=== PATIENT | female | born 1975 | race Caucasian/White ===

== ENCOUNTER 2018-12-04 13:11 | Emergency (ER) | payer SELFPAY, OTHER | END 2018-12-04 16:46 | disposition home or self-care (01) | LOC: ER FS 13:11 ==

== ENCOUNTER 2019-08-22 18:48 | Emergency (ER) | payer SELFPAY ==
[~2019-08-22] VITALS: Ht 165.1 cm; Wt 65.9 kg
[~2019-08-22 18:48] MED LIST: CEPH500T PO; METO5TAB75 PO; PROM25TA14 PO
--- NOTE | 2019-08-22 19:08 | ED Abdominal Pain ---
General Stated Complaint: BODY ACHES,VOMITING,SORE THROAT,HEAD/EAR ACHE History of Present Illness Date Seen by Provider: Aug 22, 2019 Time Seen by Provider: 19:05 Initial Comments This patient is a 43-year-old female presents to the emergency department with a long history of chronic kidney disease reports that she's had abdominal pain nausea vomiting diarrhea for the past couple days. Patient states she has a long history of constipation issues and gastroparesis abdominal pain Issues. Takes medications for the same. Denies any history of diabetes. Patient states she has stage III kidney disease. Patient has a port in her chest and frequent IVs and movement and evaluations. Patient states for the past 3 days she leaves she's had a fever but has not checked it has had nausea and vomited a cramping abdominal pain. We'll do a medical evaluation treatment as needed. Timing/Duration: 3-4 Days Severity/Quality: Moderate Location: Generalized Abdomen Radiation: No Radiation Activities at Onset: None Associated Symptoms: Denies Symptoms; No Back Pain, No Chest Pain, No Diaphoresis, No Fever/Chills, No Fatigue, No Headache, No Heartburn, No Nausea/Vomiting, No Rash, No Shortness of Air, No Swelling/Mass in Abdomen, No Syncope, No Weakness, No Other Allergies and Home Medications Allergies Coded Allergies: fentanyl (Verified Allergy, Unknown, 12/04/18) States asphyxia ketorolac (Verified Allergy, Unknown, 12/04/18) ondansetron (Verified Allergy, Unknown, 12/04/18) hydromorphone (Verified Adverse Reaction, Unknown, rash, 12/04/18) morphine (Verified Adverse Reaction, Unknown, itching, 12/04/18) Home Medications Cephalexin 500 Mg Tablet, 500 MG PO BID Prescribed by: WILMA TOBAR on 12/04/18 1629 Metoclopramide HCl 5 Mg Tablet, 5 MG PO Q8H PRN for NAUSEA/VOMITING-2ND LINE Prescribed by: WILMA TOBAR on 12/04/18 1629 Promethazine HCl 25 Mg Tablet, 25 MG PO Q6H PRN for NAUSEA/VOMITING Prescribed by: WILMA TOBAR on 12/04/18 1629 Patient Home Medication List Home Medication List Reviewed: Yes Review of Systems Review of Systems Constitutional: no symptoms reported, see HPI; No chills, No diaphoresis, No dizziness, No fever, No malaise, No weakness, No weight gain, No weight loss, No other EENTM: No Symptoms Reported, See HPI; No Blurred Vision, No Double Vision, No Eye Pain, No Eye Tearing, No Ear Drainage, No Ear Pain, No Mouth Pain, No Mouth Swelling, No Nose Congestion, No Nose Pain, No Throat Pain, No Throat Swelling, No Other Respiratory: No Symptoms Reported, See HPI Cardiovascular: No Symptoms Reported, See HPI Gastrointestinal: Denies No Symptoms Reported; See HPI; Denies Abdomen Distended; Abdominal Pain; Denies Blood Streaked Stools, Denies Constipated, Denies Diarrhea, Denies Difficulty Swallowing; Nausea; Denies Poor Appetite, Denies Poor Fluid Intake, Denies Rectal Bleeding; Vomiting; Denies Other Genitourinary: No Symptoms Reported, See HPI Past [id number]-Hieacm Hx Patient Social History Recent Foreign Travel: No Contact w/Someone Who Travel: No Recent Hopitalizations: No Seasonal Allergies Seasonal Allergies: No Past Medical History Surgeries: Yes (8 surgeries for bowel, port placement, C/S x3, D&C, Jose IVC filter) Appendectomy, Section, Gallbladder Respiratory: No Cardiac: Yes (On Lisinopril (Provided a disc PMH/PSH hundreds of pages)) Hypertension Neurological: Yes ((Provided detailed disc PMH/PSH and long med list unable to review)) Genitourinary: Yes ( Reports detailed hx (with CKD Stage 3), ureteral reflux) Bladder Infection, Kidney Stones Gastrointestinal: Yes (Bowel resection (Extensive records on a disc unable to review)) Obstructive Bowel, Diverticulosis Musculoskeletal: Yes (Numerous pain meds on old med list) Endocrine: No HEENT: No Cancer: No Psychosocial: Yes (Hx of Seroquel, Remeron, Clonzepam, Ativan on an old list) Integumentary: Yes (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 oz. 57.168162bm; BMI Method:Stated General Appearance: WD/WN, no apparent distress HEENT: PERRL/EOMI, normal ENT inspection, TMs normal, pharynx normal Neck: non-tender, full range of motion, supple, normal inspection Respiratory: chest non-tender, lungs clear, normal breath sounds, no respiratory distress, no accessory muscle use Cardiovascular: normal peripheral pulses, regular rate, rhythm, no edema, no gallop, no JVD, no murmur Peripheral Pulses: 2+ Carotid (R), 2+ Carotid (L), 2+ Femoral (R), 2+ Femoral (L), 2+ Dorsalis Pedis (R), 2+ Left Dors-Pedis (L), 2+ Radial Pulses (R), 2+ Radial Pulses (L) Gastrointestinal: normal bowel sounds, soft, no organomegaly, no pulsatile mass, tenderness Extremities: normal range of motion, non-tender, normal inspection, no pedal edema, no calf tenderness, normal capillary refill, pelvis stable Skin: normal color, warm/dry Progress/Results/Core Measures Results/Orders Lab Results Laboratory Tests Test 08/22/19 18:55 08/22/19 19:20 Range/Units Urine Color DARK YELLOW Urine Clarity CLEAR Urine pH 5.5 5-9 Urine Specific [place] 1.025 H 1.016-1.022 Urine Protein NEGATIVE NEGATIVE Urine Glucose (UA) NEGATIVE NEGATIVE Urine Ketones NEGATIVE NEGATIVE Urine Nitrite NEGATIVE NEGATIVE Urine Bilirubin NEGATIVE NEGATIVE Urine Urobilinogen 0.2 < = 1.0 MG/DL Urine Leukocyte Esterase NEGATIVE NEGATIVE Urine RBC (Auto) NEGATIVE NEGATIVE Urine RBC NONE /HPF Urine WBC RARE /HPF Urine Squamous Epithelial Cells 10-25 H /HPF Urine Crystals NONE /LPF Urine Bacteria NEGATIVE /HPF Urine Casts NONE /LPF Urine Mucus SMALL H /LPF Urine Culture Indicated NO Urine Opiates Screen NEGATIVE NEGATIVE Urine Oxycodone Screen NEGATIVE NEGATIVE Urine Methadone Screen NEGATIVE NEGATIVE Urine Propoxyphene Screen NEGATIVE NEGATIVE Urine Barbiturates Screen NEGATIVE NEGATIVE Ur Tricyclic Antidepressants Screen POSITIVE H NEGATIVE Urine Phencyclidine Screen NEGATIVE NEGATIVE Urine Amphetamines Screen POSITIVE H NEGATIVE Urine Methamphetamines Screen POSITIVE H NEGATIVE Urine Benzodiazepines Screen NEGATIVE NEGATIVE Urine Cocaine Screen NEGATIVE NEGATIVE Urine Cannabinoids Screen NEGATIVE NEGATIVE White Blood Count 18.7 H 4.3-11.0 10^3/uL Red Blood Count 5.01 4.35-5.85 10^6/uL Hemoglobin 13.1 11.5-16.0 G/DL Hematocrit 41 35-52 % Mean Corpuscular Volume 82 80-99 FL Mean Corpuscular Hemoglobin 26 25-34 PG Mean Corpuscular Hemoglobin Concent 32 32-36 G/DL Red Cell Distribution Width 14.1 10.0-14.5 % Platelet Count 399 130-400 10^3/uL Mean Platelet Volume 10.1 7.4-10.4 FL Neutrophils (%) (Auto) 84 H 42-75 % Lymphocytes (%) (Auto) 9 L 12-44 % Monocytes (%) (Auto) 6 0-12 % Eosinophils (%) (Auto) 1 0-10 % Basophils (%) (Auto) 0 0-10 % Neutrophils # (Auto) 15.7 H 1.8-7.8 X 10^3 Lymphocytes # (Auto) 1.7 1.0-4.0 X 10^3 Monocytes # (Auto) 1.2 H 0.0-1.0 X 10^3 Eosinophils # (Auto) 0.1 0.0-0.3 10^3/uL Basophils # (Auto) 0.0 0.0-0.1 10^3/uL Neutrophils % (Manual) 80 % Lymphocytes % (Manual) 9 % Monocytes % (Manual) 8 % Eosinophils % (Manual) 0 % Basophils % (Manual) 0 % Band Neutrophils 3 % Blood Morphology Comment NORMAL Sodium Level 135 135-145 MMOL/L Potassium Level 3.9 3.6-5.0 MMOL/L Chloride Level 98 98-107 MMOL/L Carbon Dioxide Level 21 21-32 MMOL/L Anion Gap 16 H 5-14 MMOL/L Blood Urea Nitrogen 15 7-18 MG/DL Creatinine 0.96 0.60-1.30 MG/DL Estimat Glomerular Filtration Rate > 60 BUN/Creatinine Ratio 16 Glucose Level 121 H 70-105 MG/DL Calcium Level 9.9 8.5-10.1 MG/DL Corrected Calcium 9.7 8.5-10.1 MG/DL Total Bilirubin 0.4 0.1-1.0 MG/DL Aspartate Amino Transf (AST/SGOT) 41 H 5-34 U/L Alanine Aminotransferase (ALT/SGPT) 71 H 0-55 U/L Alkaline Phosphatase 109 40-136 U/L Total Protein 8.0 6.4-8.2 GM/DL Albumin 4.3 3.2-4.5 GM/DL Amylase Level 43 25-125 U/L Lipase 11 8-78 U/L My Orders Orders - FELICITY LORA MD Comprehensive Metabolic Panel (08/22/19 19:02) Lipase (08/22/19 19:02) Amylase (08/22/19 19:02) Ua Culture If Indicated (08/22/19:02) Ed Iv/Invasive Line Start (08/22/19 19:02) Acute Abd Series (08/22/19:02) Cbc With Automated Diff (08/22/19:02) Ns Iv 1000 Ml (Sodium Chloride 0.9%) (08/22/19 19:15) Drug Screen Stat (Urine) (08/22/19:) Manual Differential (08/22/19:20) Diphenhydramine Injection (Benadryl Inje (08/22/19 19:45) Morphine Injection (Morphine Injection (08/22/19 19:40) Diphenhydramine Injection (Benadryl Inje (08/22/19 19:50) Medications Given in ED Current Medications Medications Dose Ordered Sig/Rocky Route Start Time Stop Time Status Last Admin Dose Admin Diphenhydramine HCl 25 mg ONCE ONCE IVP 08/22/19 19:50 08/22/19 20:41 DC 08/22/19 19:52 25 MG Vital Signs/I&O 08/22/19 19:10 Temp 36.7 Pulse 104 Resp 18 B/P (MAP) 85/58 (67) Pulse Ox 98 O2 Delivery Room Air Progress Progress Note : Progress Note Negative evaluation in the emergency. Patient's chronic conditions. Be stable. Patient does have leukocytosis but this could be from vomiting earlier. The patient does have quite a bit gassy stomach. And some bloating. And constipation. Kidney function is much improved according to labs creatinine is 0.96 which is essentially normal. The patient does have a positive drug screen of methamphetamine. I did discuss this with the patient and she denied using methamphetamine states is most likely related to her acute Keto diet. Patient did not seem to shocked with a positive drug screen. Patient does have constipation on x-ray. We did discuss at length with patient about constipation treating it with [id number] medicines MiraLAX and/or Senokot. I did discuss with patient about colic and adult in abnormal bloating. Patient be given a prescription for Bentyl. Patient will continue with all of h er home medications for nausea and vomiting which she does have chronically. Patient also was instructed to follow up with her primary care physician may use ice chips as needed for sore throat. I did discuss with him further with patient and family that examining room with the one in a while I did not order a throat swab.. Patient has a normal exam patient has no erythema patient has no swelling tonsils and has moist mucous membranes. Patient has not complained of hoarseness has no fever no other complaints. In discussion with the patient about options and did not believe the patient needs any medications or any further evaluation in the emergency department. Patient is instructed to follow up with her primary care physician in the next 2-3 days. Patient states understanding I did review patient's medical records was provided nursing staff and patient. No scleral representing an intact family. Patient's extensive medical record has a Port-A-Cath related to her chronic kidney disease however kidney function appears to be patient does not have an acute illness today. Did note leukocytosis as stated above the patient does not appear to be acutely sick and is a normal examand abdominal pain on exam. Departure Impression Primary Impression: Abdominal pain Additional Impressions: Nausea and vomiting Constipation Abnormal drug screen Disposition: 01 HOME, SELF-CARE Condition: Stable Departure-Patient Inst. Referrals: NO,LOCAL PHYSICIAN (PCP/Family) Primary Care Physician Patient Instructions: Constipation, Adult (DC), Nausea and Vomiting, Adult (DC) Add. Discharge Instructions: Encourage by mouth fluids. Continue home medications for nausea and vomiting. Use [id number] MiraLAX or Senokot as needed for constipation. We'll prescribe Bentyl as needed for abdominal pain and bloating. Patient is follow-up with her primary care physician for any further evaluation. May use ice chips or fluid steps and sore throat. Or [id number] cough drops as needed. Follow up with her PCP in 2-3 days. Scripts Dicyclomine HCl (Dicyclomine HCl) 20 Mg Tablet 20 MG PO BID for 7 Days, #10 TAB 0 Refills Prov: FELICITY LORA MD 08/22/19 FELICITY LORA MD Aug 22, 2019 19:08
[2019-08-22] MEDS ORDERED: METOCLOPRAMIDE INJ 10 MG/2 ML (REGLAN) IVP ONE (19:15)
[2019-08-22] MEDS ORDERED: NS IV 1000 ML 1,000 ML IV SCH (19:15)
[2019-08-22 19:20] LABS: BACTERIA,URINE NEGATIVE /HPF; BILIRUBIN,URINE NEGATIVE (NEGATIVE); CLARITY,URINE CLEAR; COLOR,URINE DARK YELLOW; GLUCOSE, URINE (UA) NEGATIVE (NEGATIVE); KETONES,URINE NEGATIVE (NEGATIVE); LEUKOCYTE ESTERASE ,URINE NEGATIVE (NEGATIVE); NITRITE,URINE NEGATIVE (NEGATIVE); PH,URINE 5.5 (5-9); PROTEIN,URINE NEGATIVE (NEGATIVE); WBC,URINE RARE /HPF
[2019-08-22 19:29] LABS: AMPHETAMINE SCREEN, URINE POSITIVE (NEGATIVE); BARBITURATE SCREEN URINE NEGATIVE (NEGATIVE); BENZODIAZEPINES SCREEN URINE NEGATIVE (NEGATIVE); CANNABINOID SCREEN, URINE NEGATIVE (NEGATIVE); COCAINE SCREEN URINE NEGATIVE (NEGATIVE); METHAMPHETAMINE SCREEN URINE S POSITIVE (NEGATIVE); OPIATE SCREEN URINE NEGATIVE (NEGATIVE); TRICYCLIC ANTIDEPRESSANTS SCRE POSITIVE (NEGATIVE)
[2019-08-22 19:30] LABS: METHADONE STAT NEGATIVE (NEGATIVE); OXYCODONE STAT NEGATIVE (NEGATIVE); PROPOXYPHENE STAT NEGATIVE (NEGATIVE)
[2019-08-22 19:32] LABS: HEMATOCRIT 41 % (35-52); HEMOGLOBIN 13.1 G/DL (11.5-16.0); MEAN CORPUSCULAR HEMOGLOBIN 26 PG (25-34); MEAN CORPUSCULAR HGB CONC 32 G/DL (32-36); MEAN CORPUSCULAR VOLUME 82 FL (80-99); RED CELL DISTRIBUTION WIDTH 14.1 % (10.0-14.5); WHITE BLOOD COUNT 18.7 10^3/uL (4.3-11.0)
[2019-08-22 19:33] LABS: MEAN PLATELET VOLUME 10.1 FL (7.4-10.4); PLATELET COUNT 399 10^3/uL (130-400)
[2019-08-22 19:34] LABS: BASOPHILS % (AUTO) 0 % (0-10); EOSINOPHILS # (AUTO) 0.1 10^3/uL (0.0-0.3); EOSINOPHILS % (AUTO) 1 % (0-10); LYMPHOCYTES # (AUTO) 1.7 X 10^3 (1.0-4.0); LYMPHOCYTES % (AUTO) 9 % (12-44); MONOCYTES # (AUTO) 1.2 X 10^3 (0.0-1.0); MONOCYTES % (AUTO) 6 % (0-12); NEUTROPHILS # (AUTO) 15.7 X 10^3 (1.8-7.8); NEUTROPHILS % (AUTO) 84 % (42-75)
[2019-08-22] MEDS ORDERED: morphine INJ 10 MG/ML 1ML (SYR OR VIAL) IVP STA (19:40)
[2019-08-22] MEDS ORDERED: diphenhydrAMINE 50 MG/ML INJ (BENADRYL) IM ONE (19:45)
[2019-08-22] MEDS ORDERED: hydrOXYzine (VISTARIL/ATARAX) 25 MG capsule/tablet PO ONE (19:45)
[2019-08-22 19:46] LABS: BAND NEUTROPHILS 3 %; BASOPHILS % (MANUAL) 0 %; EOSINOPHILS % (MANUAL) 0 %; LYMPHOCYTES % (MANUAL) 9 %; MONOCYTES % (MANUAL) 8 %; NEUTROPHILS % (MANUAL) 80 %; RBC MORPH NORMAL
[2019-08-22] MEDS ORDERED: diphenhydrAMINE 50 MG/ML INJ (BENADRYL) IVP ONE (19:50)
[2019-08-22 19:56] LABS: BUN/CREATININE RATIO 16; CALCIUM 9.9 MG/DL (8.5-10.1); CARBON DIOXIDE 21 MMOL/L (21-32); CHLORIDE 98 MMOL/L (98-107); CREATININE SERUM 0.96 MG/DL (0.60-1.30); GFR ESTIMATED > 60; GLUCOSE 121 MG/DL (70-105); POTASSIUM 3.9 MMOL/L (3.6-5.0); SODIUM 135 MMOL/L (135-145)
[2019-08-22 19:57] LABS: ALANINE AMINOTRANSFERASE 71 U/L (0-55); ALBUMIN 4.3 GM/DL (3.2-4.5); ALKALINE PHOSPHATASE 109 U/L (40-136); AMYLASE 43 U/L (25-125); BILIRUBIN,TOTAL 0.4 MG/DL (0.1-1.0); LIPASE 11 U/L (8-78)
--- NOTE | 2019-08-22 20:18 | Diagnostic Imaging Report ---
INDICATION: Bodyaches for 3 days, abdominal pain with nausea and vomiting today, has chronic renal disease. FINDINGS: Upright view of the chest demonstrates the lungs to be clear. The heart, mediastinum, and pulmonary vascularity are normal. Postoperative changes present in the cervical spine. [id number] is in good position. Supine and upright views of the abdomen demonstrate a bowel anastomosis in the left upper quadrant. An IVC filter is present. Surgical clips are present in the gallbladder fossa. There is a focal area of bowel dilatation in the left upper quadrant measuring 11 cm. Air-fluid levels present. IMPRESSION: There is a focal area of bowel dilatation in the left upper quadrant with air-fluid levels. Dictated by: Dictated on workstation # [id number]
[2019-08-22] MEDS ORDERED: HEParin (CENTRAL IV FLUSH) 500 UNIT/5 ML SYR IV ONE (21:00)
--- NOTE | 2019-08-22 21:01 | NUR ---
pt demanding pain medication, spoke with pt informing her of positive drug screen and he would not give further pain medication. Tech went to dc port and pt states she wants port flushed with heparin, spoke with ed provider who oked heparin, ask pt if port was normally flushed with 300 or 500 units but pt unsure, 500 units ordered.
[2019-08-22] MEDS ORDERED: DICY20TA10 PO (21:02)
[2019-08-22 21:10] VITALS: BP 108/72
--- OUTSIDE RECORDS SUMMARY | 2019-08-24 22:17 | XMS REPORT | Continuity of Care Document ---
Author Organization Unknown Address Unknown Phone Unavailable Allergies Active Description Code Type Severity Reaction Onset Reported/Identified Relationship to Patient Clinical Status Yes fentanyl [id number] Drug Allergy Unknown N/A 12/04/2018 Yes hydromorphone [id number] Fidel g Allergy Unknown rash 12/04/2018 Yes ketorolac [id number] Drug Allergy Unknown N/A 12/04/2018 Yes morphine [id number] Drug Allergy Unknown itching 12/04/2018 Yes ondansetron [id number] Drug Aller gy Unknown N/A 12/04/2018 Medications There is no data. Problems Date Dx Coded Attending Type Code Diagnosis Diagnosed By 12/04/2018 WILMA TOBAR MD Ot E83. 01 DULCE'S DISEASE 12/04/2018 WILMA TOBAR MD Ot K31. 84 GASTROPARESIS 12/04/2018 WILMA TOBAR MD Ot K56. 7 ILEUS, UNSPECIFIED 12/04/2018 WILMA TOBAR MD Ot K58. 9 IRRITABLE BOWEL SYNDROME WITHOUT DIARRHE 12/04/2018 WILMA TOBAR MD Ot N18. 3 CHRONIC KIDNEY DISEASE, STAGE 3 (MODERAT 12/04/2018 WILMA TOBAR MD Ot N39. 0 URINARY TRACT INFECTION, SITE NOT SPECIF 12/04/2018 WILMA TOBAR MD Ot R10. 32 LEFT LOWER QUADRANT PAIN 12/04/2018 WILMA TOBAR MD Ot Z87. 19 PERSONAL HISTORY OF OTHER DISEASES OF TH 12/04/2018 WILMA TOBAR MD Ot Z87.442 PERSONAL HISTORY OF URINARY CALCULI 12/04/2018 WILMA TOBAR MD Ot Z87.891 PERSONAL HISTORY OF NICOTINE DEPENDENCE 12/04/2018 WILMA TOBAR MD Ot Z88. 5 ALLERGY STATUS TO NARCOTIC AGENT STATUS 12/04/2018 WILMA TOBAR MD Ot Z88. 8 ALLERGY STATUS TO OTH DRUG/MEDS/BIOL SUB 12/04/2018 WILAM TOBAR MD, Ot Z90. 49 ACQUIRED ABSENCE OF OTHER SPECIFIED PART 12/06/2018 WILMA TOBAR MD Ot E83. 01 DULCE'S DISEASE 12/06/2018 WILMA TOBAR MD Ot K31. 84 GASTROPARESIS 12/06/2018 WILMA TOBAR MD Ot K56. 7 ILEUS, UNSPECIFIED 12/06/2018 WILMA TOBAR MD Ot K58. 9 IRRITABLE BOWEL SYNDROME WITHOUT DIARRHE 12/06/2018 WILMA TOBAR MD Ot N18. 3 CHRONIC KIDNEY DISEASE, STAGE 3 (MODERAT 12/06/2018 WILMA TOBAR MD Ot N39. 0 URINARY TRACT INFECTION, SITE NOT SPECIF 12/06/2018 WILMA TOBAR MD Ot R10. 32 LEFT LOWER QUADRANT PAIN 12/06/2018 WILMA TOBAR MD Ot Z87. 19 PERSONAL HISTORY OF OTHER DISEASES OF TH 12/06/2018 WILMA TOBAR MD Ot Z87.442 PERSONAL HISTORY OF URINARY CALCULI 12/06/2018 WILMA TOBAR MD Ot Z87.891 PERSONAL HISTORY OF NICOTINE DEPENDENCE 12/06/2018 WILMA TOBAR MD Ot Z88. 5 ALLERGY STATUS TO NARCOTIC AGENT STATUS 12/06/2018 WILMA TOBAR MD Ot Z88. 8 ALLERGY STATUS TO OTH DRUG/MEDS/BIOL SUB 12/06/2018 WILMA TOBAR MD Ot Z90. 49 ACQUIRED ABSENCE OF OTHER SPECIFIED PART Procedures There is no data. Results Test Result Range Urine beta human chorionic gonadotropin (hCG) measurement - 12/04/18 13:25 Urine beta human chorionic gonadotropin (hCG) measurem ent NEGATIVE NEGATIVE Complete urinalysis with reflex to cultu re - 12/04/18 13:25 Urine color determination YELLOW NRG Urine clarity determination CLOUDY NR G Urine pH measurement by test strip 6.0 5-9 Specific gravity of urine by test strip 1.020 1.016-1.022 Urine protein assay by test strip, semi-quantitative TRACE NEGATIVE Urine glucose detection by automated test strip NE GATIVE NEGATIVE Erythrocytes detection in urine sediment by light micr oscopy 3+ NEGATIVE Urine ketones detection by automated test strip NE GATIVE NEGATIVE Urine nitrite detection by test strip NEGATIVE NEGATIVE Urine total bilirubin detection by test strip NEGA TIVE NEGATIVE Urine urobilinogen measurement by automated test strip (mass/volume) 0.2 mg/dL NORMAL Urine leukocyte esterase detection by dipstick 2+ NEGATIVE Automated urine sediment erythrocyte cou nt by microscopy (number/high power field) [HPF] NRG Automated urine sediment leukocyte count by microscopy (number/high power field) [HPF] NRG Bacteria detection in urine sediment by light microsco py LARGE NRG Squamous epithelial cells detection in u rine sediment by light microscopy >50 NRG Crystals detection in urine sediment by light microsco py NONE NRG Casts detection in urine sediment by light microscopy NONE NRG Mucus detection in urine sediment by light microscopy MODERATE NRG Complete urinalysis with reflex to culture YES NRG Bacterial urine culture - 12/04/18 13:25 Bacterial urine culture 3 OR MORE NRG COLONY COUNT >100,000/ML NRG FTX;REPORTABLE SUGGESTING PROBABLE COLLECTION NRG FREE TEXT ENTRY 2 CONTAMINATION WITH SKIN KALLI NRG FREE TEXT ENTRY 3 NO SUSCEPTIBILITY PERFORMED NRG PT panel in platelet poor plasma by coag ulation assay - 12/04/18 13:45 Prothrombin time (PT) in platelet poor plasma by coagu lation assay 12.2 s 12.2-14.7 INR in platelet poor plasma or blood by coagulation as say 0.9 0.8-1.4 Activated partial thromboplastin time (a PTT) in platelet poor plasma bycoagulation assay - 12/04/18 13:45 Activated partial thromboplastin time (a PTT) in platelet poor plasma bycoagulation assay 21 s 24-35 Comprehensive metabolic panel - 12/04/18 13:45 Serum or plasma sodium measurement (moles/volume) 137 mmol/L 135-145 Serum or plasma potassium measurement (moles/volume) 3.9 mmol/L 3.6-5.0 Serum or plasma chloride measurement (moles/volume) 100 mmol/L 98-107 Carbon dioxide 25 mmol/L 21-32 Serum or plasma anion gap determination (moles/volume) 12 mmol/L 5-14 Serum or plasma urea nitrogen measurement (mass/volume ) 17 mg/dL 7-18 Serum or plasma creatinine measurement (mass/volume) 0.70 mg/dL 0.60-1.30 Serum or plasma urea nitrogen/creatinine mass ratio 24 NRG Serum or plasma creatinine measurement w ith calculation of estimated glomerular filtration rate > NRG Serum or plasma glucose measurement (mass/volume) 125 mg/dL 70-105 Serum or plasma calcium measurement (mass/volume) 8.7 mg/dL 8.5-10.1 Serum or plasma total bilirubin measurement (mass/volu me) 0.2 mg/dL 0.1-1.0 Serum or plasma alkaline phosphatase amie surement (enzymatic activity/volume) 65 U/L 40-136 Serum or plasma aspartate aminotransfera se measurement (enzymatic activity/volume) 14 U/L 5-34 Serum or plasma alanine aminotransferase measurement (enzymatic activity/volume) 13 U/L 0-55 Serum or plasma protein measurement (mass/volume) 6.7 g/dL 6.4-8.2 Serum or plasma albumin measurement (mass/volume) 3.8 g/dL 3.2-4.5 CALCIUM CORRECTED 8.9 mg/dL 8.5-10.1 Magnesium - 12/04/18 13:45 Magnesium 1.7 mg/dL 1.8-2.4 Lipase - 12/04/18 13:45 Lipase 27 U/L 8-78 Complete blood count (CBC) with automate d white blood cell (WBC) differential - 12/04/18 13:45 Blood leukocytes automated count (number/volume) 9.5 10*3/uL 4.3-11.0 Blood erythrocytes automated count (number/volume) 4.22 10*6/uL 4.35-5.85 Venous blood hemoglobin measurement (mass/volume) 11.4 g/dL 11.5-16.0 Blood hematocrit (volume fraction) 36 % 35-52 Automated erythrocyte mean corpuscular volume 86 [ foz_us] 80-99 Automated erythrocyte mean corpuscular h emoglobin (mass per erythrocyte) 27 pg 25-34 Automated erythrocyte mean corpuscular h emoglobin concentration measurement (mass/volume) 32 g/dL 32-36 Automated erythrocyte distribution width ratio 14. 3 % 10.0- 14.5 Automated blood platelet count (count/volume) 246 10*3/uL 130-400 Automated blood platelet mean volume measurement 10.3 [foz_us] 7.4-10.4 Automated blood neutrophils/100 leukocytes 74 % 42-75 Automated blood lymphocytes/100 leukocytes 16 % 12-44 Blood monocytes/100 leukocytes 8 % 0-12 Automated blood eosinophils/100 leukocytes 2 % 0-10 Automated blood basophils/100 leukocytes 0 % 0-10 Blood neutrophils automated count (number/volume) 7.0 10*3 1.8-7.8 Blood lymphocytes automated count (number/volume) 1.5 10*3 1.0-4.0 Blood monocytes automated count (number/volume) 0. 7 10*3 0.0-1.0 Automated eosinophil count 0.2 10*3/uL 0 .0-0.3 Automated blood basophil count (count/volume) 0.0 10*3/uL 0.0-0.1 MAGNESIUM SERUM - 03/06/19 16:08 MAGNESIUM 1.8 mg/dL 1.5-2.5 CBC w/MANUAL DIFF - 03/06/19 16:08 WHITE BLOOD CELL COUNT 8.1 Thousand/uL 3 .8-10.8 RED BLOOD CELL COUNT 4.52 Million/uL 3.8 0-5.10 HEMOGLOBIN 11.5 g/dL 11.7-15.5 HEMATOCRIT 36.4 % 35.0-45.0 MCV 80.5 fL 80.0-100.0 MCH 25.4 pg 27.0-33.0 MCHC 31.6 g/dL 32.0-36.0 RDW 13.9 % 11.0-15.0 PLATELET COUNT 267 Thousand/uL 140-400 MPV 11.2 fL 7.5-12.5 ABSOLUTE NEUTROPHILS 5208 cells/uL 1500- 7800 ABSOLUTE MONOCYTES 826 cells/uL 200-950 ABSOLUTE EOSINOPHILS 162 cells/uL 15-500 ABSOLUTE BASOPHILS 81 cells/uL 0-200 NEUTROPHILS 64.3 % NRG LYMPHOCYTES 22.5 % NRG MONOCYTES 10.2 % NRG EOSINOPHILS 2.0 % NRG BASOPHILS 1.0 % NRG ABSOLUTE LYMPHOCYTES 1823 cells/uL 850-3 900 PLATELET ESTIMATION ADEQUATE ADEQUATE CBC MORPHOLOGY NORMAL Complete urinalysis with reflex to cultu re - 08/22/19 18:55 Urine color determination DARK YELLOW N RG Urine clarity determination CLEAR NR G Urine pH measurement by test strip 5.5 5-9 Specific gravity of urine by test strip 1.025 1.016-1.022 Urine protein assay by test strip, semi-quantitative NEGATIVE NEGATIVE Urine glucose detection by automated test strip NE GATIVE NEGATIVE Erythrocytes detection in urine sediment by light micr oscopy NEGATIVE NEGATIVE Urine ketones detection by automated test strip NE GATIVE NEGATIVE Urine nitrite detection by test strip NEGATIVE NEGATIVE Urine total bilirubin detection by test strip NEGA TIVE NEGATIVE Urine urobilinogen measurement by automated test strip (mass/volume) 0.2 mg/dL < = 1.0 Urine leukocyte esterase detection by dipstick NEG ATIVE NEGATIVE Automated urine sediment erythrocyte cou nt by microscopy (number/high power field) NONE NRG Automated urine sediment leukocyte count by microscopy (number/high power field) RARE NRG Bacteria detection in urine sediment by light microsco py NEGATIVE NRG Squamous epithelial cells detection in u rine sediment by light microscopy 10- NRG Crystals detection in urine sediment by light microsco py NONE NRG Casts detection in urine sediment by light microscopy NONE NRG Mucus detection in urine sediment by light microscopy SMALL NRG Complete urinalysis with reflex to culture NO NRG Urine drug screening test - 08/22/19 18: 55 Urine phencyclidine detection by screening method NEGATIVE NEGATIVE Urine benzodiazepines detection by screening method NEGATIVE NEGATIVE Urine cocaine detection NEGATIVE NEGATI VE Urine amphetamines detection by screening method P OSITIVE NEGATIVE Urine methamphetamine detection by screening method POSITIVE NEGATIVE Urine cannabinoids detection by screening method N EGATIVE NEGATIVE Urine opiates detection by screening method NEGATI VE NEGATIVE Urine barbiturates detection NEGATIVE N EGATIVE Screening urine tricyclic antidepressants detection POSITIVE NEGATIVE Urine methadone detection by screening method NEGA TIVE NEGATIVE Urine oxycodone detection NEGATIVE NEGA TIVE Urine propoxyphene detection NEGATIVE N EGATIVE Complete blood count (CBC) with automate d white blood cell (WBC) differential - 08/22/19 19:20 Blood leukocytes automated count (number/volume) 18.7 10*3/uL 4.3-11.0 Blood erythrocytes automated count (number/volume) 5.01 10*6/uL 4.35-5.85 Venous blood hemoglobin measurement (mass/volume) 13.1 g/dL 11.5-16.0 Blood hematocrit (volume fraction) 41 % 35-52 Automated erythrocyte mean corpuscular volume 82 [ foz_us] 80-99 Automated erythrocyte mean corpuscular h emoglobin (mass per erythrocyte) 26 pg 25-34 Automated erythrocyte mean corpuscular h emoglobin concentration measurement (mass/volume) 32 g/dL 32-36 Automated erythrocyte distribution width ratio 14. 1 % 10.0- 14.5 Automated blood platelet count (count/volume) 399 10*3/uL 130-400 Automated blood platelet mean volume measurement 10.1 [foz_us] 7.4-10.4 Automated blood neutrophils/100 leukocytes 84 % 42-75 Automated blood lymphocytes/100 leukocytes 9 % 12-44 Blood monocytes/100 leukocytes 6 % 0-12 Automated blood eosinophils/100 leukocytes 1 % 0-10 Automated blood basophils/100 leukocytes 0 % 0-10 Blood neutrophils automated count (number/volume) 15.7 10*3 1.8-7.8 Blood lymphocytes automated count (number/volume) 1.7 10*3 1.0-4.0 Blood monocytes automated count (number/volume) 1. 2 10*3 0.0-1.0 Automated eosinophil count 0.1 10*3/uL 0 .0-0.3 Automated blood basophil count (count/volume) 0.0 10*3/uL 0.0-0.1 Manual absolute plasma cell count - 08/12 19:20 Blood monocytes/100 leukocytes 8 % NRG Manual blood segmented neutrophils/100 leukocytes 80 % NRG Blood band neutrophils/100 leukocytes 3 % NRG Manual blood lymphocytes/100 leukocytes 9 % NRG Manual eosinophils/100 leukocytes in nose 0 % NRG Manual blood basophils/100 leukocytes 0 % NRG Blood erythrocyte morphology finding identification NORMAL NR Comprehensive metabolic panel - 08/22/19 19:20 Serum or plasma sodium measurement (moles/volume) 135 mmol/L 135-145 Serum or plasma potassium measurement (moles/volume) 3.9 mmol/L 3.6-5.0 Serum or plasma chloride measurement (moles/volume) 98 mmol/L 98-107 Carbon dioxide 21 mmol/L 21-32 Serum or plasma anion gap determination (moles/volume) 16 mmol/L 5-14 Serum or plasma urea nitrogen measurement (mass/volume ) 15 mg/dL 7-18 Serum or plasma creatinine measurement (mass/volume) 0.96 mg/dL 0.60-1.30 Serum or plasma urea nitrogen/creatinine mass ratio 16 NRG Serum or plasma creatinine measurement w ith calculation of estimated glomerular filtration rate > NRG Serum or plasma glucose measurement (mass/volume) 121 mg/dL 70-105 Serum or plasma calcium measurement (mass/volume) 9.9 mg/dL 8.5-10.1 Serum or plasma total bilirubin measurement (mass/volu me) 0.4 mg/dL 0.1-1.0 Serum or plasma alkaline phosphatase amie surement (enzymatic activity/volume) 109 U/L 40-136 Serum or plasma aspartate aminotransfera se measurement (enzymatic activity/volume) 41 U/L 5-34 Serum or plasma alanine aminotransferase measurement (enzymatic activity/volume) 71 U/L 0-55 Serum or plasma protein measurement (mass/volume) 8.0 g/dL 6.4-8.2 Serum or plasma albumin measurement (mass/volume) 4.3 g/dL 3.2-4.5 CALCIUM CORRECTED 9.7 mg/dL 8.5-10.1 Serum or plasma amylase measurement (enz ymatic activity/volume) - 08/22/19 19:20 Serum or plasma amylase measurement (enzymatic activit y/volume) 43 U/L 25-125 Lipase - 08/22/19 19:20 Lipase 11 U/L 8-78 Encounters ACCT No. Visit Date/Time Discharge Status Pt. Type Provider Facility Loc./Unit Complaint [id number] 08/22/2019 18:20:00 [facility] [id number] 03/02/2019 09:20:00 Document Registration [id number] 08/22/2019 18:51:00 020 21:10:00 DIS Emergency GUIDO KING, FELICITY Taylor [facility] ER FS BODY ACHES,VOMITING,SOR E THROAT,HEAD/EAR ACHE [id number] 08/14/2019 10:45:00 020 23:59:59 CLS Preadmit OTHER, UNLISTED [facility] RAD FS IVC FILTER PLACEMENT [id number] 12/04/2018 13:11:00 019 16:46:00 DIS Emergency EKATERINA KING, WILMA Manzo [facility] ER FS ABD PAIN,DIARRHEA
== END 2019-08-22 21:10 | disposition home or self-care (01) ==
LOC: EDUNIT# 18:48 → ER FS 18:51
DX: K59.00 Constipation, unspecified (principal); R11.2 Nausea with vomiting, unspecified; R89.2 Abnormal level of other drugs, medicaments and biological substances in specimens from other organs, systems and tissues; I12.9 Hypertensive chronic kidney disease with stage 1 through stage 4 chronic kidney disease, or unspecified chronic kidney disease; N18.3 Chronic kidney disease, stage 3 (moderate); Z88.6 Allergy status to analgesic agent; Z88.5 Allergy status to narcotic agent; Z88.8 Allergy status to other drugs, medicaments and biological substances
CPT/HCPCS: 36415; 74022; 80053; 80306; 81000; 82150; 83690; 85007; 85027

== ENCOUNTER → 2019-11-21 | Outpatient (CLI) | payer OTHER ==
[~2019-11-21] MED LIST changes: +DICY20TA10 PO
--- NOTE | 2019-11-21 17:21 | Diagnostic Imaging Report ---
EXAMINATION: CT Abdomen Pelvis without contrast. TECHNIQUE: Multiple contiguous axial images were obtained through the abdomen and pelvis without the use of intravenous contrast. All CT scans use one or more of the following dose optimizing techniques: automated exposure control, MA and/or KvP adjustment based on a patient size and exam type, or iterative reconstruction. HISTORY: IVC filter complication. COMPARISON: 12/04/2018. FINDINGS: Limited views of the lower thorax are unremarkable. The liver is normal without focal lesion. There is no biliary ductal dilation. Gallbladder is surgically absent. Pancreas is normal. Spleen is normal. Adrenal glands are normal. The kidneys are normal. There is no hydronephrosis. Urinary bladder is normal. The uterus and adnexa appear unchanged. Mild endometrial thickening is likely related to the phase of the endometrial cycle. Bilateral physiologic cysts are seen in the ovaries. There is no small bowel resection with an anastomosis in the left upper quadrant which is patulous but unchanged from prior exam. There are a few nonspecific enlarged lymph nodes adjacent to the anastomosis in the left upper quadrant within the mesentery which are likely reactive and are unchanged. No free fluid or air. Aorta is normal in caliber without aneurysm. An inferior vena cava's filter is present. The tines extend beyond the lumen of cava with the left-sided harry abutting the right common iliac artery. There are no suspicious osseus lesions. IMPRESSION: 1. Inferior vena cava filter tines extend beyond the lumen of the cava with the most left-sided harry abutting the right common iliac artery. Dictated by: Dictated on workstation # [id number]
== END ==
LOC: RAD FS 13:58
DX: Z95.828 Presence of other vascular implants and grafts (principal)
CPT/HCPCS: 74176

== ENCOUNTER 2020-09-16 06:53 | Outpatient (CLI) | payer OTHER ==
[~2020-09-16] VITALS: Ht 147.3 cm; Wt 62.1 kg
[2020-09-16] MEDS ORDERED: FURO-125 PO (11:21)
[2020-09-16] MEDS ORDERED: DIVA125T2 PO (11:21)
[2020-09-16] MEDS ORDERED: CLN.1T PO (11:21)
[2020-09-16] MEDS ORDERED: NITR-65 PO (11:21)
[2020-09-16] MEDS ORDERED: PHEN100C4 PO (11:21)
[2020-09-16] MEDS ORDERED: LISI20TA26 PO (11:21)
[2020-09-16] MEDS ORDERED: TRZ50T PO (11:21)
[2020-09-16] MEDS ORDERED: CIPR-225 PO (11:21)
[2020-09-16] MEDS ORDERED: GABA-490 PO (11:21)
[2020-09-16] MEDS ORDERED: GABA-486 PO (11:21)
== END 2020-09-16 13:52 | disposition home or self-care (01) ==
LOC: PREOP 06:53
PROVIDERS: ATTEND Surgery
DX: Z01.812 Encounter for preprocedural laboratory examination (principal); T82.598A Other mechanical complication of other cardiac and vascular devices and implants, initial encounter

== ENCOUNTER 2020-09-25 10:07 | Day surgery (SDC) | payer OTHER ==
[~2020-09-25] VITALS: Ht 147 cm; Wt 62.1 kg
[2020-09-25] VITALS (8 sets, daily range): BP systolic 98–114; BP diastolic 55–98
[~2020-09-25 10:07] MED LIST changes: +CIPR-225 PO; +CLN.1T PO; +DIVA125T2 PO; +FURO-125 PO; +GABA-486 PO; +GABA-490 PO; +LISI20TA26 PO; +NITR-65 PO; +PHEN100C4 PO; +TRZ50T PO
[2020-09-25] MEDS ORDERED: ceFAZolin 2 GM IV Premixed 50 ML IV ONE (10:15)
[2020-09-25] MEDS ORDERED: LACTATED RINGERS 1,000 ML IV PRN ×2 (10:15)
--- NOTE | 2020-09-25 10:19 | Progress Note-Pre Operative ---
Pre-Operative Progress Note H&P Reviewed The H&P was reviewed, patient examined and no changes noted. Time Seen by Provider: 10:15 Date H&P Reviewed: Sep 25, 2020 Time H&P Reviewed: 10:15 Pre-Operative Diagnosis: Malfuncitioning port, Venous Insufficiency OLEGARIO ELIZALDE DO Sep 25, 2020 10:19
[2020-09-25] MEDS ORDERED: LIDOCAINE/EPI 1%-1:100,000 (XYLOCAINE) 20ML ONE (10:42)
[2020-09-25] MEDS ORDERED: 0.9% SODIUM CHLORIDE PF INJ 20 ML VIAL ONE (10:42)
[2020-09-25] MEDS ORDERED: HEParin (CENTRAL IV FLUSH) 500 UNIT/5 ML SYR ONE (10:42)
[2020-09-25] MEDS ORDERED: ceFAZolin 2 GM IV Premixed 50 ML ONE (11:15)
[2020-09-25] MEDS ORDERED: MIDAZOLAM 2 MG/2 ML (VERSED) VIAL ONE ×2 (11:16→11:17)
[2020-09-25] MEDS ORDERED: PROPOFOL INJECTION 50 ML IV ONE ×2 (11:17→12:39)
[2020-09-25] MEDS ORDERED: MIDAZOLAM 2 MG/2 ML (VERSED) VIAL IVP ONE (11:30)
[2020-09-25] MEDS ORDERED: PROMETHAZINE INJ 25 MG/ML (PHENERGAN) AMP ONE (12:33)
[2020-09-25] MEDS ORDERED: diphenhydrAMINE 50 MG/ML INJ (BENADRYL) ONE (12:35)
--- NOTE | 2020-09-25 12:37 | Progress Note-Post Operative ---
Post-Operative Progess Note Surgeon (s)/Discovery Guide (s) Surgeon OLEGARIO ELIZALDE DO Discovery Guide: ALISON Lunsford Pre-Operative Diagnosis Malfuncitioning port, Venous Insufficiency Post-Operative Diagnosis same Procedure & Operative Findings Date of Procedure 09/25/20 Procedure Performed/Findings PROCEDURE: Removal of port, right chest wall in RIJ COMPLICATIONS: None. INDICATIONS: The patient is a 44 year-old female who had a port previously placed. Patient is ok to have port removed. The patient was explained risk and benefits of the procedure and wished to proceed with procedure. Consent was signed on the chart. PROCEDURE: The patient was taken to the operating suite and was prepped and draped in sterile fashion. A surgical pause was performed. Local anesthetic was infiltrated to the area around the port. A number 15 blade scalpel was used to make an incision. Cautery was used to dissect down to the port which was then grasped and then dissected around. The catheter was removed in its entirety. The port was then able to be dissected out of the pocket and elevated. The wound was then irrigated with copious amounts of irrigation. Hemostasis had been achieved. The subcutaneous tissues were then reapproximated using 3-0 Vicryl. Skin was then closed using 4-0 Vicryl in a running fashion. The area was then washed and dried and Skin Affix placed over the incision. PROCEDURE: [LEFT] internal jugular port placement using ultrasound guidance. COMPLICATIONS: None. INDICATIONS: The patient is a 44 year old female [with malfunctioning port ant Venous insufficieny]. Patient understands the risks and benefits of port placement and wished to proceed with the procedure. Consent was signed on the chart. PROCEDURE: The patient was taken to the operating suite, was prepped and draped in the sterile fashion. A surgical pause was performed. Ultrasound was used to locate the internal jugular vein. Once located anesthetic was infiltrated above it. Using micro-access kit, the right internal vein was accessed watched with US as the needle entered the vein and good dark nonpulsatile blood was withdrawn. The wire was inserted. Fluoroscopy assured proper placement. The needle was removed. The micro-access dilator was advanced over the wire and the wire was removed. The regular wire was inserted and fluoroscopy assured proper placement. The wire was then secured. Local anesthetic was used to anesthetize from the neck for tunneling down to the right chest and for pocket creation. A [#15] blade scalpel was used to make an incision over the [left] chest. Cautery was used to dissect down to the pectoral fascia. A pocket was created with blunt dissection. The dilator sheath was then advanced over the wire under fluoroscopy and the dilator and wire were removed. The Groshong catheter was inserted through the sheath and the sheath was then removed. The Groshong wire was removed. The catheter was then tunneled to the right chest pocket. Fluoroscopy was used to cut to length and this was then attached to the port which was then placed within the pocket. The port was then accessed without difficulty. It was then flushed with saline and then heparin. The skin was then reapproximated using 4-0 undyed Monocryl; 5 subcuticular stitches. The areas were then washed and dried. Skin Affix was placed over incision. The insertion point of the neck Skin Affix was placed over the incision. The patient tolerated the procedure well without complication and was taken to recovery room in stable condition. Anesthesia Type IV Sedation by [employer] Estimated Blood Loss Estimated blood loss (mL): scant Specimens/Packing Specimens Removed none OLEGARIO ELIZALDE DO Sep 25, 2020 12:37
[2020-09-25] MEDS ORDERED: ACHD5005 PO (12:39)
--- NOTE | 2020-09-25 12:40 | Discharge Inst-Surgical ---
Discharge Inst-Surgical Depart Medication/Instructions New, Converted or Re-Newed RX: RX Given to Pt/Family Patient Instructions Follow up Appt: Make appointment for 1 week. [phone] Instructions: No lifting greater than 20 pounds. No strenuous activity. May shower in 24 hours, no tub bath or soaking. Use incentive spirometer at home as directed. No Smoking Skin/Wound Care: May remove bandages in am. You need to leave the Dermabond on incision it will fall off on it's own. Symptoms to Report: Appetite Changes, Extremity Discoloration, Numbness/Tingling, Swelling Increased, Bleeding Excessive, Eyesight Changes, Pain Increased, Urine Color Change, Constipation(Persistent), Fever over 101 degree F, Pain/Pressure in chest, Urinating Difficulty, Cough Up/Vomit Blood, Heart Beat Irreg/Pounding, Pain/Pressure in jaw, Cramps in feet or legs, Lightheadedness, Pain/Pressure in shoulder, Diarrhea(Persistent), Memory Changes Suddenly, Questions/Concerns, Weight gain consecutive days, Dizziness/Fainting, Nausea/Vomiting, Shortness of Breath, Weight gain over 2 pounds If questions or concerns contact your physician Or seek help at emergency department. Activity Activity Instructions: Avoid Stress to Incision Driving Instructions: No Driving/Refer to Dr. Galvez Discharge Diet: No Restrictions Diet After 24 Hours: Clear Liquid if Nauseous If Any Problems/Questions/Issu: Contact Your Physician, Go to Emergency Room Skin/Wound Care Infection Signs and Symptoms: Increased Redness, Foul Odor of Wound, Increased Drainage, Skin Itchy or Has a Rash, Increased Swelling, Temperature Above 101 F Bathing Instructions: Shower Stitches/Consuelo/Dermabond Dis: Dermabond OLEGARIO ELIZALDE DO Sep 25, 2020 12:40
[2020-09-25] MEDS ORDERED: morphine INJ 10 MG/ML 1ML (SYR OR VIAL) IVP ONE (12:45)
[2020-09-25] MEDS ORDERED: PROMETHAZINE INJ 25 MG/ML (PHENERGAN) AMP IVP ONE (12:45)
[2020-09-25] MEDS ORDERED: diphenhydrAMINE 50 MG/ML INJ (BENADRYL) IVP ONE ×2 (12:45→14:15)
--- NOTE | 2020-09-25 13:11 | Diagnostic Imaging Report ---
INDICATION: Port removal. Chronic renal disease. COMPARISON: None. TOTAL FLUOROSCOPY TIME: 3.9 seconds. TOTAL NUMBER OF FLUOROSCOPIC IMAGES SAVED: Two. FINDINGS: Multiple intraoperative image intensifier views of the chest were obtained and demonstrate a left-sided internal jugular Port-A-Cath. The central tip appears to terminate within the right atrium. Evaluation for pneumothorax is suboptimal given fluoroscopic modality. Please note, the interpreting radiologist was not present during the procedure. IMPRESSION: Fluoroscopic guidance provided intraoperatively. Dictated by: Dictated on workstation # [id number]
--- NOTE | 2020-09-25 14:23 | Anesthesia-General Post-Op ---
MAC Patient Condition Mental Status/LOC: Same as Preop Cardiovascular: Satisfactory Nausea/Vomiting: Absent Respiratory: Satisfactory Pain: Controlled Complications: Absent Post Op Complications Complications None Follow Up Care/Instructions Patient Instructions None needed. Anesthesiology Discharge Order Discharge Order Patient is doing well, no complaints, stable vital signs, no apparent adverse anesthesia problems. No complications reported per nursing. ALEXSANDER QUIROZ CRNA Sep 25, 2020 14:23
== END 2020-09-25 13:50 | disposition home or self-care (01) ==
LOC: SDC 10:07
PROVIDERS: ATTEND Surgery
DX: T82.594A Other mechanical complication of infusion catheter, initial encounter (principal); I87.2 Venous insufficiency (chronic) (peripheral); I10 Essential (primary) hypertension; R56.9 Unspecified convulsions; G62.9 Polyneuropathy, unspecified; Z95.5 Presence of coronary angioplasty implant and graft; Z88.8 Allergy status to other drugs, medicaments and biological substances; Z88.5 Allergy status to narcotic agent; Z83.3 Family history of diabetes mellitus; Z80.9 Family history of malignant neoplasm, unspecified
CPT/HCPCS: 36561; 36590; 76000; 84703; 87081; C1788

== ENCOUNTER → 2020-10-08 | Outpatient (CLI) | payer OTHER ==
[~2020-10-08] MED LIST changes: +ACHD5005 PO; +IOHEXOL 240 MGI/ML 50 ML (OMNIPAQUE) VIAL IV ONE
--- NOTE | 2020-10-08 17:26 | Diagnostic Imaging Report ---
INDICATION: Malfunctioning port. Patient was brought to the procedure room, placed on the table in the supine position. The patient's left chest wall port was accessed by radiology nursing. Approximate 12 mL of Omnipaque 240 contrast was injected during fluoroscopic observation. A total of 30 seconds of fluoroscopic time was utilized. There is a left chest wall port with tip entering the right atrium. There is free flow of contrast through the port and out the catheter tip. There is no kinking or interruption of the port tubing. No extravasation is seen. IMPRESSION: Normal fluoroscopically assisted port evaluation. Dictated by: Dictated on workstation # [id number]
== END ==
LOC: RAD 14:15
PROVIDERS: ATTEND Surgery
DX: T82.598A Other mechanical complication of other cardiac and vascular devices and implants, initial encounter (principal)
CPT/HCPCS: 36598

== ENCOUNTER 2020-11-20 15:03 | Outpatient (RCR) | payer OTHER ==
[2020-10-23 17:15] LABS: RETICULOCYTE % 1.21 % (0.50-2.40)
[2020-10-23 17:19] LABS: INR 0.9 (0.8-1.4); PROTHROMBIN TIME PATIENT 12.9 SEC (12.2-14.7)
[~2020-11-20 15:03] MED LIST changes: +FERRIC CARBOXYMALTOSE (CANCER) 750 MG in NS (IVPB) CANCER CENTER 250 ML IV SCH; -IOHEXOL 240 MGI/ML 50 ML (OMNIPAQUE) VIAL IV ONE; +PROCHLORPERAZINE 10 MG ONE; +PROCHLORPERAZINE 10 MG/2ML INJ (COMPAZINE) IV ONE
[2020-11-22 13:51] LABS: BASOPHILS % (AUTO) 0 % (0-10); EOSINOPHILS # (AUTO) 0.3 10^3/uL (0.0-0.3); EOSINOPHILS % (AUTO) 3 % (0-10); HEMATOCRIT 41 % (35-52); HEMOGLOBIN 12.9 g/dL (11.5-16.0); LYMPHOCYTES # (AUTO) 1.2 10^3/uL (1.0-4.0); LYMPHOCYTES % (AUTO) 12 % (12-44); MEAN CORPUSCULAR HEMOGLOBIN 27 pg (25-34); MEAN CORPUSCULAR HGB CONC 32 g/dL (32-36); MEAN CORPUSCULAR VOLUME 85 fL (80-99); MEAN PLATELET VOLUME 9.9 fL (9.0-12.2); MONOCYTES # (AUTO) 0.8 10^3/uL (0.0-1.0); MONOCYTES % (AUTO) 8 % (0-12); NEUTROPHILS # (AUTO) 7.4 10^3/uL (1.8-7.8); NEUTROPHILS % (AUTO) 76 % (42-75); PLATELET COUNT 278 10^3/uL (130-400); WHITE BLOOD COUNT 9.8 10^3/uL (4.3-11.0)
== END 2020-11-22 13:27 | disposition home or self-care (01) ==
LOC: ONC 15:03
PROVIDERS: ATTEND Internal Medicine Hematology & Oncology
DX: D50.9 Iron deficiency anemia, unspecified (principal); D68.59 Other primary thrombophilia
CPT/HCPCS: 81240; 81241; 82607; 82668; 82746; 83020; 83090; 85045; 85302; 85305; 85610; 85613; 85705; 85730; 86146 ×2; 86147 ×2; G0463; 36591; 82728; 83540; 83550; 85025; 96365; 96375

== ENCOUNTER 2020-11-22 13:30 | Outpatient (RCR) | payer MEDICAID, OTHER ==
[~2020-11-22 13:30] MED LIST changes: -FERRIC CARBOXYMALTOSE (CANCER) 750 MG in NS (IVPB) CANCER CENTER 250 ML IV SCH; -PROCHLORPERAZINE 10 MG ONE; -PROCHLORPERAZINE 10 MG/2ML INJ (COMPAZINE) IV ONE
[2020-11-29] MEDS ORDERED: CIPR500T5 PO (13:02)
[2020-11-29] MEDS ORDERED: PHEN-639 PO (13:02)
[2020-11-29] MEDS ORDERED: ACHD5005 PO (13:02)
== END 2020-12-23 12:56 | disposition home or self-care (01) ==
LOC: ONC 13:30 → EEVIPCON 13:30 → ONC 12-23 12:56
PROVIDERS: ATTEND Internal Medicine Hematology & Oncology
DX: D50.9 Iron deficiency anemia, unspecified (principal); D68.59 Other primary thrombophilia
CPT/HCPCS: 36591

== ENCOUNTER 2020-11-29 11:24 | Emergency (ER) | payer OTHER ==
[~2020-11-29] VITALS: Ht 147.3 cm; Wt 52.0 kg
--- NOTE | 2020-11-29 12:14 | ED Back Pain ---
General Chief Complaint: Back Problems Stated Complaint: FLANK PAIN, BLOOD IN URINE Nursing Triage Note: Pt arrival to ER with complaint of flank pain, blood in urine x24 hours. Pt states that she has significant history of kidney issues and intestinal issues. Pain rated at a 6/10. Nursing Sepsis Screen: No Definite Risk Source of Information: Patient Exam Limitations: No Limitations (COLT BENTLEY APRN) History of Present Illness Date Seen by Provider: Nov 29, 2020 Time Seen by Provider: 12:11 Initial Comments ER with nausea that started yesterday, she then developed blood in her urine and bilateral flank pain. The blood in her urine is accompanied by severe dysuria and burning pain. States that she just finished amoxicillin 875mg BID 5 DAYS AGO for a pyelonephritis. Location: Other (bilat flank) Timing/Duration: 12-24 Hours Severity: Moderate Associated Symptoms: denies symptoms (COLT BENTLEY APRN) Allergies and Home Medications Allergies Coded Allergies: fentanyl (Verified Allergy, Unknown, 12/04/18) States asphyxia ketorolac (Verified Allergy, Unknown, 12/04/18) ondansetron (Verified Allergy, Unknown, 12/04/18) hydromorphone (Verified Adverse Reaction, Unknown, rash, 12/04/18) morphine (Verified Adverse Reaction, Unknown, itching, 12/04/18) Home Medications Ciprofloxacin HCl 500 Mg Tablet, 500 MG PO BID, (Reported) Ciprofloxacin HCl 500 Mg Tablet, 500 MG PO BID Prescribed by: COLT BENTLEY on 11/29/20 1302 Clonidine HCl 0.1 Mg Tablet, 0.1 MG PO BID, (Reported) Divalproex Sodium 125 Mg Tablet.dr, 125 MG PO DAILY, (Reported) Furosemide 20 Mg Tablet, 20 MG PO HS, (Reported) Gabapentin 400 Mg Capsule, 400 MG PO TID, (Reported) Gabapentin 100 Mg Capsule, 100 MG PO HS, (Reported) Hydrocodone Bit/Acetaminophen 1 Tab Tab, 1 TAB PO Q8H PRN for PAIN-MODERATE (5- 7) Prescribed by: OLEGARIO ELIZALDE on 09/25/20 1239 Hydrocodone/Acetaminophen 1 Each Tablet, 1 TAB PO Q4H PRN for PAIN-MODERATE (5- 7) Prescribed by: COLT BENTLEY on 11/29/20 1303 Lisinopril 20 Mg Tablet, 20 MG PO DAILY, (Reported) Nitrofurantoin Monohyd/M-Cryst 100 Mg Capsule, 1 TAB PO BID, (Reported) Phenazopyridine HCl 100 Mg Tablet, 100 MG PO BID PRN for PAIN-MODERATE (5-7) Prescribed by: COLT BENTLEY on 11/29/20 1302 Phenytoin Sodium Extended 100 Mg Capsule, 100 MG PO TID, (Reported) Trazodone HCl 50 Mg Tablet, 50 MG PO HS, (Reported) Patient Home Medication List Home Medication List Reviewed: Yes (COLT BENTLEY APRN) Review of Systems Constitutional: see HPI EENTM: see HPI Respiratory: no symptoms reported Cardiovascular: no symptoms reported Genitourinary: no symptoms reported Musculoskeletal: no symptoms reported Skin: no symptoms reported Psychiatric/Neurological: No Symptoms Reported (COLT BENTLEY APRN) Past Zzhawbp-Ijmbxt-Ceuulg Hx Patient Social History Alcohol Use: Denies Use Recent Infectious Disease Expo: No Recent Hopitalizations: No (COLT BENTLEY APRN) Immunizations Up To Date Tetanus Booster (TDap): Less than 5yrs PED Vaccines UTD: Yes (COLT BENTLEY APRN) Seasonal Allergies Seasonal Allergies: No (COLT BENTLEY APRN) Past Medical History Surgeries: Yes (8 surgeries for bowel, port placement, C/S x3, D&C, [place] IVC filter) Appendectomy, Bowel Surgery, Section, Gallbladder Respiratory: No Cardiac: Yes (On Lisinopril (Provided a disc PMH/PSH hundreds of pages)) Hypertension Neurological: Yes ((Provided detailed disc PMH/PSH and long med list unable to review)) Genitourinary: Yes ( Reports detailed hx (with CKD Stage 3), ureteral reflux) Bladder Infection, Kidney Stones Gastrointestinal: Yes (Bowel resection (Extensive records on a disc unable to review)) Obstructive Bowel, Diverticulosis Musculoskeletal: Yes (Numerous pain meds on old med list) Chronic Back Pain Endocrine: No HEENT: No Cancer: Yes (CLL (STAGE 2) IN 2015) Leukemia Psychosocial: Yes (Hx of Seroquel, Remeron, Clonzepam, Ativan on an old list) Integumentary: Yes (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 oz. 57.135564ls; 23.00 BMI Method:Stated General Appearance: No Apparent Distress, WD/WN HEENT: PERRL/EOMI, TMs Normal Neck: Full Range of Motion, Normal Inspection Respiratory: No Accessory Muscle Use, No Respiratory Distress Gastrointestinal: Non Tender, Soft Genital/Rectal: Normal Genital Exam Extremity: Normal Capillary Refill, Normal Inspection Neurologic/Psychiatric: Alert, Oriented x3 Skin: Normal Color, Warm/Dry (COLT BENTLEY APRN) Progress/Results/Core Measures Results/Orders Lab Results Laboratory Tests Test 11/29/20 11:48 11/29/20 12:02 Range/Units Urine Color YELLOW Urine Clarity CLOUDY Urine pH 6.0 5-9 Urine Specific [place] 1.025 H 1.016-1.022 Urine Protein NEGATIVE NEGATIVE Urine Glucose (UA) NEGATIVE NEGATIVE Urine Ketones NEGATIVE NEGATIVE Urine Nitrite NEGATIVE NEGATIVE Urine Bilirubin NEGATIVE NEGATIVE Urine Urobilinogen 0.2 < = 1.0 MG/DL Urine Leukocyte Esterase 1+ H NEGATIVE Urine RBC (Auto) 2+ H NEGATIVE Urine RBC 5-10 H /HPF Urine WBC 10-25 H /HPF Urine Squamous Epithelial Cells 25-50 H /HPF Urine Crystals PRESENT H /LPF Urine Amorphous Sediment MOD ALEJANDRO URATES H /LPF Urine Bacteria LARGE H /HPF Urine Casts NONE /LPF Urine Mucus NEGATIVE /LPF Urine Culture Indicated YES White Blood Count 6.3 4.3-11.0 10^3/uL Red Blood Count 4.49 3.80-5.11 10^6/uL Hemoglobin 12.2 11.5-16.0 g/dL Hematocrit 38 35-52 % Mean Corpuscular Volume 85 80-99 fL Mean Corpuscular Hemoglobin 27 25-34 pg Mean Corpuscular Hemoglobin Concent 32 32-36 g/dL Red Cell Distribution Width 17.5 H 10.0-14.5 % Platelet Count 231 130-400 10^3/uL Mean Platelet Volume 9.8 9.0-12.2 fL Immature Granulocyte % (Auto) 0 % Neutrophils (%) (Auto) 70 42-75 % Lymphocytes (%) (Auto) 18 12-44 % Monocytes (%) (Auto) 8 0-12 % Eosinophils (%) (Auto) 4 0-10 % Basophils (%) (Auto) 0 0-10 % Neutrophils # (Auto) 4.4 1.8-7.8 10^3/uL Lymphocytes # (Auto) 1.1 1.0-4.0 10^3/uL Monocytes # (Auto) 0.5 0.0-1.0 10^3/uL Eosinophils # (Auto) 0.3 0.0-0.3 10^3/uL Basophils # (Auto) 0.0 0.0-0.1 10^3/uL Immature Granulocyte # (Auto) 0.0 0.0-0.1 10^3/uL Sodium Level 139 135-145 MMOL/L Potassium Level 3.8 3.6-5.0 MMOL/L Chloride Level 108 H 98-107 MMOL/L Carbon Dioxide Level 22 21-32 MMOL/L Anion Gap 9 5-14 MMOL/L Blood Urea Nitrogen 13 7-18 MG/DL Creatinine 0.73 0.60-1.30 MG/DL Estimat Glomerular Filtration Rate > 60 BUN/Creatinine Ratio 18 Glucose Level 102 70-105 MG/DL Calcium Level 9.2 8.5-10.1 MG/DL Corrected Calcium 9.0 8.5-10.1 MG/DL Total Bilirubin 0.3 0.1-1.0 MG/DL Aspartate Amino Transf (AST/SGOT) 11 5-34 U/L Alanine Aminotransferase (ALT/SGPT) 13 0-55 U/L Alkaline Phosphatase 74 40-136 U/L Total Protein 7.3 6.4-8.2 GM/DL Albumin 4.3 3.2-4.5 GM/DL (KEERTHI KWON MD) Medications Given in ED Current Medications Medications Dose Ordered Sig/Rocky Route Start Time Stop Time Status Last Admin Dose Admin Acetaminophen/ Hydrocodone Bitart 1 ea ONCE ONCE PO 11/29/20 12:15 11/29/20 12:16 DC 11/29/20 12:14 1 EA Ceftriaxone Sodium 1000 mg/ Sterile Water 10 ml @ 200 mls/hr ONCE ONCE IV 11/29/20 13:00 11/29/20 13:02 DC 11/29/20 13:26 200 MLS/HR Phenazopyridine HCl 100 mg ONCE ONCE PO 11/29/20 13:00 11/29/20 13:01 DC 11/29/20 13:26 100 MG Promethazine HCl 25 mg ONCE ONCE IVP 11/29/20 12:15 11/29/20 12:16 DC 11/29/20 12:14 25 MG (KEERTHI KWON MD) Vital Signs/I&O 11/29/20 11/29/20 11:39 13:43 Temp 36.9 Pulse 80 72 Resp 18 20 B/P (MAP) 124/101 (109) 142/93 Pulse Ox 100 99 O2 Delivery Room Air (KEERTHI KWON MD) Blood Pressure Mean: 109 Diagnostic Imaging Diagonstic Imaging: CT Comments NAME: KASSANDRA RUTHERFORD [facility] REC#: [id number] PT STATUS: REG ER : 1975 PHYSICIAN: COLT BENTLEY APRN ADMIT DATE: 11/29/20/ER Draft Date of Exam:11/29/20 CT ABD/PELVIS WO(KIDNEY STONE) PROCEDURE: CT urinary tract, rule out kidney stone. TECHNIQUE: Multiple contiguous axial images were obtained through the abdomen and pelvis without the use of intravenous contrast. Auto Exposure Controls were utilized during the CT exam to meet ALARA standards for radiation dose reduction. INDICATION: Bilateral flank pain, left greater, as well as hematuria. COMPARISON: Correlation is made with prior CT from 11/21/2019. FINDINGS: The lung bases are clear. Liver and gallbladder are unremarkable. There is no biliary ductal dilatation. Pancreas and spleen are unremarkable. No adrenal mass is detected. Both kidneys contain small calcific densities, consistent with nonobstructing calculi. There is a low-attenuation lesion in the upper pole of the left kidney which appears stable and likely a cyst. There is no hydronephrosis. No definite ureteral or bladder calculi are detected. Aorta is nonaneurysmal. There is a filter within the inferior vena cava, similar in position as prior exam one year earlier. Bowel loops are normal in caliber. There is moderate stool in the colon. The uterus is unremarkable. No free fluid or fluid collection is identified. IMPRESSION: 1. Bilateral nonobstructing nephrolithiasis. 2. Moderate stool in the colon, suggestive of constipation. 3. No other significant abnormality is detected. Dictated on workstation # [id number] Dict: 11/29/20 1245 Trans: 11/29/20 1253 [id number] Interpreted by: KATIANA POE MD Electronically signed by: (COLT BENTLEY APRN) Departure Impression Primary Impression: Urinary tract infection Disposition: HOME, SELF-CARE Condition: Stable Departure-Patient Inst. Decision time for Depature: 13:01 (COLT BENTLEY APRN) Referrals: EDIL NGUYEN APRN (PCP/Family) Primary Care Physician Patient Instructions: Kidney Infection Add. Discharge Instructions: Medication as directed 2. Return to ER for any concerns 3. All discharge instructions reviewed with patient and/or family. Voiced understanding. Scripts Hydrocodone/Acetaminophen (Hydrocodone-Acetamin 5-325 mg) 1 Each Tablet 1 TAB PO Q4H PRN for PAIN-MODERATE (5-7), #5 TAB Prov: COLT BENTLEY APRN 11/29/20 Phenazopyridine HCl (Pyridium) 100 Mg Tablet 100 MG PO BID PRN for PAIN-MODERATE (5-7), #6 TAB Prov: COLT BENTLEY APRN 11/29/20 Ciprofloxacin HCl (Ciprofloxacin HCl) 500 Mg Tablet 500 MG PO BID, #14 TAB Prov: COLT BENTLEY APRN 11/29/20 Attending physician statement: I was physically present as attending physician in the emergency department during the care of this patient, but I was not directly involved in this patient's care or in the decision making of this patient's case. (KEERTHI KWON MD) COLT BENTLEY APRN Nov 29, 2020 12:14 KEERTHI KWON MD Nov 29, 2020 20:14
[2020-11-29] MEDS ORDERED: HYDROcodone/APAP 5 MG/325 MG (LORTAB) TAB PO ONE (12:15)
[2020-11-29] MEDS ORDERED: PROMETHAZINE INJ 25 MG/ML (PHENERGAN) AMP IVP ONE (12:15)
[2020-11-29] MEDS ORDERED: NS IV 1000 ML 1,000 ML IV SCH (12:15)
[2020-11-29 12:19] LABS: BASOPHILS % (AUTO) 0 % (0-10); EOSINOPHILS # (AUTO) 0.3 10^3/uL (0.0-0.3); EOSINOPHILS % (AUTO) 4 % (0-10); HEMATOCRIT 38 % (35-52); HEMOGLOBIN 12.2 g/dL (11.5-16.0); LYMPHOCYTES # (AUTO) 1.1 10^3/uL (1.0-4.0); LYMPHOCYTES % (AUTO) 18 % (12-44); MEAN CORPUSCULAR HEMOGLOBIN 27 pg (25-34); MEAN CORPUSCULAR HGB CONC 32 g/dL (32-36); MEAN CORPUSCULAR VOLUME 85 fL (80-99); MEAN PLATELET VOLUME 9.8 fL (9.0-12.2); MONOCYTES # (AUTO) 0.5 10^3/uL (0.0-1.0); MONOCYTES % (AUTO) 8 % (0-12); NEUTROPHILS # (AUTO) 4.4 10^3/uL (1.8-7.8); NEUTROPHILS % (AUTO) 70 % (42-75); PLATELET COUNT 231 10^3/uL (130-400); WHITE BLOOD COUNT 6.3 10^3/uL (4.3-11.0)
[2020-11-29 12:25] LABS: BILIRUBIN,URINE NEGATIVE (NEGATIVE); CLARITY,URINE CLOUDY; COLOR,URINE YELLOW; GLUCOSE, URINE (UA) NEGATIVE (NEGATIVE); KETONES,URINE NEGATIVE (NEGATIVE); LEUKOCYTE ESTERASE ,URINE 1+ (NEGATIVE); NITRITE,URINE NEGATIVE (NEGATIVE); PROTEIN,URINE NEGATIVE (NEGATIVE)
[2020-11-29 12:31] LABS: ALBUMIN 4.3 GM/DL (3.2-4.5)
[2020-11-29 12:32] LABS: CHLORIDE 108 MMOL/L (98-107); POTASSIUM 3.8 MMOL/L (3.6-5.0); SODIUM 139 MMOL/L (135-145)
[2020-11-29 12:33] LABS: CALCIUM 9.2 MG/DL (8.5-10.1)
[2020-11-29 12:34] LABS: GLUCOSE 102 MG/DL (70-105); TOTAL PROTEIN 7.3 GM/DL (6.4-8.2)
[2020-11-29 12:35] LABS: CARBON DIOXIDE 22 MMOL/L (21-32)
[2020-11-29 12:36] LABS: BILIRUBIN,TOTAL 0.3 MG/DL (0.1-1.0)
[2020-11-29 12:37] LABS: ALKALINE PHOSPHATASE 74 U/L (40-136)
[2020-11-29 12:38] LABS: CREATININE SERUM 0.73 MG/DL (0.60-1.30); GFR ESTIMATED > 60
[2020-11-29 12:39] LABS: BUN/CREATININE RATIO 18
[2020-11-29 12:41] LABS: ALANINE AMINOTRANSFERASE 13 U/L (0-55)
[2020-11-29 12:43] LABS: BACTERIA,URINE LARGE /HPF; SQUAMOUS EPITHELIAL CELL,UR 25-50 /HPF
[2020-11-29 12:44] LABS: AMORPHOUS SEDIMENT,UR MOD AMOR URATES /LPF
--- NOTE | 2020-11-29 12:54 | Diagnostic Imaging Report ---
PROCEDURE: CT urinary tract, rule out kidney stone. TECHNIQUE: Multiple contiguous axial images were obtained through the abdomen and pelvis without the use of intravenous contrast. Auto Exposure Controls were utilized during the CT exam to meet ALARA standards for radiation dose reduction. INDICATION: Bilateral flank pain, left greater, as well as hematuria. COMPARISON: Correlation is made with prior CT from 11/21/2019. FINDINGS: The lung bases are clear. Liver and gallbladder are unremarkable. There is no biliary ductal dilatation. Pancreas and spleen are unremarkable. No adrenal mass is detected. Both kidneys contain small calcific densities, consistent with nonobstructing calculi. There is a low-attenuation lesion in the upper pole of the left kidney which appears stable and likely a cyst. There is no hydronephrosis. No definite ureteral or bladder calculi are detected. Aorta is nonaneurysmal. There is a filter within the inferior vena cava, similar in position as prior exam one year earlier. Bowel loops are normal in caliber. There is moderate stool in the colon. The uterus is unremarkable. No free fluid or fluid collection is identified. IMPRESSION: 1. Bilateral nonobstructing nephrolithiasis. 2. Moderate stool in the colon, suggestive of constipation. 3. No other significant abnormality is detected. Dictated by: Dictated on workstation # [id number]
[2020-11-29] MEDS ORDERED: cefTRIAXone 1,000 MG in WATER (STERILE) FOR INJECTION 10 ML IV ONE (13:00)
[2020-11-29] MEDS ORDERED: PHENAZOPYRIDINE 100 MG (PYRIDIUM) TABLET PO ONE (13:00)
[2020-11-29] MEDS ORDERED: PHEN-639 PO (13:02)
[2020-11-29] MEDS ORDERED: ACHD5005 PO (13:02)
[2020-11-29] MEDS ORDERED: CIPR500T5 PO (13:02)
[2020-11-29 13:43] VITALS: BP 142/93
== END 2020-11-29 13:42 | disposition home or self-care (01) ==
LOC: EDUNIT# 11:24 → EEVIPCON 11:26 → ER 11:26
DX: N39.0 Urinary tract infection, site not specified (principal); I10 Essential (primary) hypertension; G89.29 Other chronic pain; M54.9 Dorsalgia, unspecified; Z79.891 Long term (current) use of opiate analgesic; Z79.899 Other long term (current) drug therapy
CPT/HCPCS: 36415; 74176; 80053; 81000; 85025; 87088

== ENCOUNTER 2020-12-05 17:05 | Emergency (ER) | payer OTHER ==
[~2020-12-05] VITALS: Ht 147 cm; Wt 52.0 kg
[~2020-12-05 17:05] MED LIST changes: +CIPR500T5 PO; +PHEN-639 PO
--- NOTE | 2020-12-05 18:04 | ED Respiratory ---
General Chief Complaint: Respiratory Problems Stated Complaint: SOB/HEADACHE/LOSS OF TASTE Source: patient Exam Limitations: no limitations (COLT BENTLEY APRN) History of Present Illness Date Seen by Provider: Dec 05, 2020 Time Seen by Provider: 18:03 Initial Comments to ER with shortness of breath headache loss of taste. She has been around her nephew when she found out today that he is positive for Covid. She has no fevers. She is still on antibiotics for urinary tract infection that I saw her for last week. She plans [facility] discharge from here. Timing/Duration: just prior to arrival Severity: moderate Associated Symptoms: cough, shortness of breath (COLT BENTLEY APRN) Allergies and Home Medications Allergies Coded Allergies: fentanyl (Verified Allergy, Unknown, 12/04/18) States asphyxia ketorolac (Verified Allergy, Unknown, 12/04/18) ondansetron (Verified Allergy, Unknown, 12/04/18) hydromorphone (Verified Adverse Reaction, Unknown, rash, 12/04/18) morphine (Verified Adverse Reaction, Unknown, itching, 12/04/18) Home Medications Ciprofloxacin HCl 500 Mg Tablet, 500 MG PO BID, (Reported) Ciprofloxacin HCl 500 Mg Tablet, 500 MG PO BID Prescribed by: COLT BENTLEY on 11/29/20 1302 Clonidine HCl 0.1 Mg Tablet, 0.1 MG PO BID, (Reported) Divalproex Sodium 125 Mg Tablet.dr, 125 MG PO DAILY, (Reported) Furosemide 20 Mg Tablet, 20 MG PO HS, (Reported) Gabapentin 400 Mg Capsule, 400 MG PO TID, (Reported) Gabapentin 100 Mg Capsule, 100 MG PO HS, (Reported) Hydrocodone Bit/Acetaminophen 1 Tab Tab, 1 TAB PO Q8H PRN for PAIN-MODERATE (5- 7) Prescribed by: OLEGARIO ELIZALDE on 09/25/20 1239 Hydrocodone/Acetaminophen 1 Each Tablet, 1 TAB PO Q4H PRN for PAIN-MODERATE (5- 7) Prescribed by: COLT BENTLEY on 11/29/20 1303 Lisinopril 20 Mg Tablet, 20 MG PO DAILY, (Reported) Nitrofurantoin Monohyd/M-Cryst 100 Mg Capsule, 1 TAB PO BID, (Reported) Phenazopyridine HCl 100 Mg Tablet, 100 MG PO BID PRN for PAIN-MODERATE (5-7) Prescribed by: COLT BENTLEY on 11/29/20 1302 Phenytoin Sodium Extended 100 Mg Capsule, 100 MG PO TID, (Reported) Trazodone HCl 50 Mg Tablet, 50 MG PO HS, (Reported) Patient Home Medication List Home Medication List Reviewed: Yes (COLT BENTLEY APRN) Review of Systems Review of Systems Constitutional: see HPI EENTM: see HPI Respiratory: no symptoms reported Cardiovascular: no symptoms reported Genitourinary: no symptoms reported Musculoskeletal: no symptoms reported Skin: no symptoms reported Psychiatric/Neurological: No Symptoms Reported Hematologic/Lymphatic: No Symptoms Reported (COLT BENTLEY APRN) Past Wkwkwex-Obwtzy-Gjiygs Hx Patient Social History Recent Hopitalizations: No (COLT BENTLEY APRN) Immunizations Up To Date Tetanus Booster (TDap): Less than 5yrs PED Vaccines UTD: Yes (COLT BENTLEY APRN) Seasonal Allergies Seasonal Allergies: No (COLT BENTLEY APRN) Past Medical History Surgeries: Yes (8 surgeries for bowel, port placement, C/S x3, D&C, [place] IVC filter) Appendectomy, Bowel Surgery, Section, Gallbladder Respiratory: No Cardiac: Yes (On Lisinopril (Provided a disc PMH/PSH hundreds of pages)) Hypertension Neurological: Yes ((Provided detailed disc PMH/PSH and long med list unable to review)) Genitourinary: Yes ( Reports detailed hx (with CKD Stage 3), ureteral reflux) Bladder Infection, Kidney Stones Gastrointestinal: Yes (Bowel resection (Extensive records on a disc unable to review)) Obstructive Bowel, Diverticulosis Musculoskeletal: Yes (Numerous pain meds on old med list) Chronic Back Pain Endocrine: No HEENT: No Cancer: Yes (CLL (STAGE 2) IN 2015) Leukemia Psychosocial: Yes (Hx of Seroquel, Remeron, Clonzepam, Ativan on an old list) Integumentary: Yes (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 oz. 57.560627sm; 23.00 BMI Method:Stated General Appearance: WD/WN, no apparent distress, other (Oxygen saturation 99% room air, respiratory rate is 20) Eyes: Bilateral Eye Normal Inspection, Bilateral Eye PERRL, Bilateral Eye EOMI HEENT: PERRL/EOMI, normal ENT inspection Respiratory: normal breath sounds, no respiratory distress, no accessory muscle use Cardiovascular: regular rate, rhythm, no murmur Gastrointestinal: normal bowel sounds, non tender, soft Extremities: normal range of motion, non-tender Neurologic/Psychiatric: alert, normal mood/affect, oriented x 3 Skin: normal color, warm/dry (COLT BENTLEY APRN) Progress/Results/Core Measures Suspected Sepsis SIRS Temperature: Pulse: Respiratory Rate: Blood Pressure / Mean: (COLT BENTLEY APRN) Results/Orders Lab Results Laboratory Tests Test 12/05/20 17:50 Range/Units Influenza Type A (RT-PCR) Not Detected Not Detecte Influenza Type B (RT-PCR) Not Detected Not Detecte SARS-CoV-2 RNA (RT-PCR) Not Detected Not Detecte Group A Streptococcus Screen NEGATIVE NEGATIVE (KEERTHI KWON MD) Micro Results Microbiology 12/05/20 Throat Culture - Preliminary, Resulted No Beta Strep isolated (KEERTHI KWON MD) Vital Signs/I&O 12/05/20 12/05/20 17:48 18:48 Temp 37.1 37.1 Pulse 60 65 Resp 18 18 B/P (MAP) 129/82 (98) 112/68 (98) Pulse Ox 99 99 O2 Delivery Room Air Room Air (KEERTHI KWON MD) Vital Signs/I&O Capillary Refill : (COLT BENTLEY APRN) Departure Impression Primary Impression: Exposure to COVID-19 virus Disposition: HOME, SELF-CARE Condition: Stable Departure-Patient Inst. Decision time for Depature: 18:32 (COLT BENTLEY APRN) Referrals: EDIL NGUYEN APRN (PCP/Family) Primary Care Physician Patient Instructions: COVID-19 Overview Add. Discharge Instructions: Your covid test was negative. However, because of your exposure you need to be away from other individuals (on quarantine) for 10 days from most recent exposure which was today. All discharge instructions reviewed with patient and/or family. Voiced understanding. ATTENDING PHYSICIAN NOTE: I was physically present as attending physician in the emergency department during the care of this patient, but I was not directly involved in the decision making or delivery of care for this patient. (KEERTHI KWON MD) COLT BENTLEY APRN Dec 05, 2020 18:04 KEERTHI KWON MD Dec 07, 2020 06:32
[2020-12-05 18:48] VITALS: BP 112/68
--- NOTE | 2020-12-05 18:50 | Diagnostic Imaging Report ---
EXAMINATION: Chest 1 view. HISTORY: Shortness of breath. Covid positive. COMPARISON: None available. FINDINGS: A left port is visualized with the tip overlying the cavoatrial juncture. The lung volumes are normal. No focal consolidation is seen. No large pleural effusion or pneumothorax is seen. The cardiomediastinal silhouette is normal in size and contour. No acute osseous abnormality is seen. IMPRESSION: 1. No acute pleuroparenchymal process. Dictated by: Dictated on workstation # [id number]
== END 2020-12-05 18:48 | disposition home or self-care (01) ==
LOC: EDUNIT# 17:05 → EEVIPCON 17:06 → ER 17:06
DX: R43.9 Unspecified disturbances of smell and taste (principal); I10 Essential (primary) hypertension; G89.29 Other chronic pain; M54.9 Dorsalgia, unspecified; Z20.822 Contact with and (suspected) exposure to COVID-19; Z79.899 Other long term (current) drug therapy; Z79.891 Long term (current) use of opiate analgesic
CPT/HCPCS: 71045; 87430; 87636

== ENCOUNTER 2020-12-24 11:18 | Outpatient (RCR) | payer MEDICAID | END 2020-12-27 11:06 | disposition home or self-care (01) | LOC: ONC 11:18 | PROVIDERS: ATTEND Internal Medicine Hematology & Oncology | DX: D50.9 Iron deficiency anemia, unspecified (principal); D68.59 Other primary thrombophilia; L81.9 Disorder of pigmentation, unspecified; R11.2 Nausea with vomiting, unspecified | CPT/HCPCS: 99213 ==

== ENCOUNTER 2021-04-09 14:27 | Outpatient (RCR) | payer MEDICAID ==
[2021-04-08 16:33] LABS: BASOPHILS % (AUTO) 0 % (0-10); EOSINOPHILS # (AUTO) 0.1 10^3/uL (0.0-0.3); EOSINOPHILS % (AUTO) 2 % (0-10); HEMATOCRIT 37 % (35-52); HEMOGLOBIN 11.6 g/dL (11.5-16.0); LYMPHOCYTES # (AUTO) 1.3 10^3/uL (1.0-4.0); LYMPHOCYTES % (AUTO) 20 % (12-44); MEAN CORPUSCULAR HEMOGLOBIN 29 pg (25-34); MEAN CORPUSCULAR HGB CONC 32 g/dL (32-36); MEAN CORPUSCULAR VOLUME 91 fL (80-99); MEAN PLATELET VOLUME 9.9 fL (9.0-12.2); MONOCYTES # (AUTO) 0.4 10^3/uL (0.0-1.0); MONOCYTES % (AUTO) 6 % (0-12); NEUTROPHILS # (AUTO) 4.6 10^3/uL (1.8-7.8); NEUTROPHILS % (AUTO) 71 % (42-75); PLATELET COUNT 250 10^3/uL (130-400); WHITE BLOOD COUNT 6.5 10^3/uL (4.3-11.0)
[~2021-04-09 14:27] MED LIST changes: +DICY20TA PO; -DICY20TA10 PO
== END 2021-06-13 | disposition home or self-care (01) ==
LOC: ONC 14:27
PROVIDERS: ATTEND Internal Medicine Hematology & Oncology
DX: Z45.2 Encounter for adjustment and management of vascular access device (principal); D50.9 Iron deficiency anemia, unspecified; D68.59 Other primary thrombophilia; L81.9 Disorder of pigmentation, unspecified; R11.2 Nausea with vomiting, unspecified
CPT/HCPCS: 36591; 85025; 99213

== ENCOUNTER 2021-06-17 18:07 | Emergency (ER) | payer MEDICAID ==
[~2021-06-17] VITALS: Ht 147 cm; Wt 55.0 kg
--- OUTSIDE RECORDS SUMMARY | 2021-06-17 18:12 | XMS REPORT | Clinical Summary ---
Author Author [facility] Organization [facility] Address Unknown Phone Unavailable Care Team Providers Care Communications Attendant Name Role Phone Kodi Shoemaker MD Unavailable Angeli Jeong MD Unavailable Emiliano Rousseau MD Unavailable Nakul Almonte MD [phone] Sae BANSAL MD, John M Unavailable Alexandria Douglas [facility] Unavailable Amber Merino APRN-WOOD TILE INSTALLATION HELPER Unavailable [phone] Rosa De La Torre DO Unavailable Unavailable Nathan De La Torre MD Unavailable Lane rAce WOOD TILE INSTALLATION HELPER PCP Source Comments Some departments are not documenting in the electronic medical record. If you d o not see the information that you expected, contact Release of Information in [facility] Health Information Management department at [phone] for further assistan ce in locating additional records.[facility] Allergies Comments Active Allergy Reactions Severity Noted Date Hydromorphone (Bulk) HIVES 07/17/2014 Fentanyl HIVES 07/17/2014 Morphine NAUSEA AND 05/18/2011 VOMITING, ITCHING Ketorolac HEADACHE 07/17/2014 Kidney issues do not take it Acetaminophen SEE COMMENTS 07/17/2014 Ondansetron Hcl (Pf) HEADACHE 05/18/2011 Medications End Date Status Medication Sig Dispensed Refills Start Date Active PROMETHAZINE HCL Take by 0 (PHENERGAN PO) mouth. Active hyoscyamine (LEVSIN) Take 1 Tab by 30 Tab 0 0.125 mg tablet mouth every 4 1 hours as needed for Cramps. Active magnesium citrate oral Take 296 mL 1 Bottle 1 solution by mouth 1 once. Active nitrofurantoin SR Take 100 mg 0 (MACROBID) 100 mg capsule by mouth every 12 hours. Active lisinopril (PRINIVIL; Take 20 mg by 0 ZESTRIL) 20 mg tablet mouth daily. Active phenytoin (DILANTIN) 125 Take 300 mg 0 mg/5 mL oral suspension by mouth three times daily. Active divalproex (DEPAKOTE) 125 Take 125 mg 0 mg tablet by mouth three times daily. Active penicillAMINE (CUPRIMINE) Take 250 mg 0 250 mg capsule by mouth daily. Active diazepam (VALIUM) 2 mg Take 2 mg by 0 tablet mouth every 6 hours as needed. Active oxyCODONE SR (OXYCONTIN) Take 10 mg by 0 10 mg tablet mouth every 12 hours Active OXYCODONE HCL (OXYCODONE Take by 0 PO) mouth. Active LINACLOTIDE (LINZESS PO) Take 490 mg 0 by mouth daily. Active cyanocobalamin (VITAMIN Take 1,000 0 B-12) 1,000 mcg tablet mcg by mouth twice daily. Active rivaroxaban (XARELTO) 15 Take 15 mg by 16 Tab 0 mg (42)- 20 mg (9) DsPk mouth twice 5 daily. 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 Chronic anxiety 07/17/2014 Peripheral neuropathy 07/17/2014 Chronic pain 07/17/2014 Family History Medical History Relation Name Comments Diabetes Maternal Aunt Cancer Maternal Grandfather Cancer-Lung Maternal Grandmother Hypertension Mother Cancer Paternal Grandmother Cancer-Breast Paternal Grandmother Relation Name Status Comments Maternal Aunt Maternal Grandfather Maternal Grandmother Mother Paternal Grandmother Social History Date Tobacco Use Types Packs/Day Years Used Never Smoker Comments Alcohol Use Standard Drinks/Week No 0 (1 standard drink = 0.6 o z pure alcohol) Sex Assigned at Date Recorded Not on file Last Filed Vital Signs Reading Time Taken Comments Vital Sign 115/70 08/21/2014 3:10 PM CDT Blood Pressure 142 08/21/2014 3:10 PM CDT Pulse 36.7 C (98.1 F) 08/21/2014 3:10 PM CDT Temperature 18 08/21/2014 3:10 PM CDT Respiratory Rate 98% 08/06/2014 1:48 PM STEREO PLOTTER OPERATOR Oxygen Saturation - - Inhaled Oxygen Concentration 59 kg (130 lb) 07/17/2014 1:27 PM STEREO PLOTTER OPERATOR Weight 151.1 cm (4' 11.5") 08/21/2014 3:10 PM CDT Height 25.82 07/17/2014 1:27 PM STEREO PLOTTER OPERATOR Body Mass Index Plan of Treatment Health Maintenance Due Date Last Done Comments HIV SCREENING 11/12/1991 DTAP/TDAP VACCINES ( - 1994 Tdap) HEPATITIS C SCREENING 1994 PHYSICAL (COMPREHENSIVE) 1994 EXAM CERVICAL CANCER SCREENING 1997 BREAST CANCER SCREENING 2016 INFLUENZA VACCINE 01/12/2021 Results Not on filefrom Last 3 Months Insurance Type Payer Benefit Subscriber ID Effective Phone Address Plan / Dates Group AETNA MEDICAID AETNA [id number] 2020-P [phone] [address] [facility] [id number] [place] [phone] Advance Directives Patient Faculty Research Physician Explanation Type Date Recorded Advance 07/16/2014 3:39 PM Directive/DPOA Care Teams Start Date End Date Communications Attendant Relationship Specialty 10/21/17 Lane Arce NP PCP - General Nurse [address] Practitioner [place] [id number] 05/19/11 Kodi Shoemaker MD Internal [address] [place] [address] 07/21/11 Angeli Jeong MD Internal [address] Medicine [facility] Lvl [address] [place] [address] 01/07/12 Emiliano Rousseau MD Nephrology [address] [facility] Lvl [address] [place] [address] 07/16/14 Nakul Almonte MD REFERRING Rehabilitati [address] [place] [address] 07/17/14 James Quevedo II, MD Medical [address] [place] [address] 07/18/14 Alexandria Douglas, LSCSW [address] [place] [address] 07/26/14 Amber Merino, Nurse POLICE LIAISON OFFICER-WOOD TILE INSTALLATION HELPER Practitioner [address] [place] [address] 08/07/14 Rosa De La Torre DO Family Forwarding Address Medicine Unknown 08/07/14 Nathan De La Torre MD [address] [address]
--- OUTSIDE RECORDS SUMMARY | 2021-06-17 18:12 | XMS REPORT | Clinical Summary ---
Author Author [facility] Organization [facility] Address Unknown Phone Unavailable Care Team Providers Care Senior Etl Developer Name Role Phone Guillermo Hoyt MD PCP Allergies Comments Active Allergy Reactions Severity Noted Date Acetaminophen 07/16/2015 Fentanyl 07/16/2015 Morphine 07/16/2015 Nsaids (Non-Steroidal 07/16/2015 Anti-Inflammatory Drug) Ketorolac 07/16/2015 Ondansetron Hcl 07/16/2015 Medications End Date Status Medication Sig Dispensed Refills Start Date Active PHENYTOIN SODIUM EXTENDED Take by 0 (DILANTIN ORAL) mouth. Active DIVALPROEX SODIUM Take by 0 (DEPAKOTE ORAL) mouth. Active LINACLOTIDE (LINZESS Take by 0 ORAL) mouth. Active LORAZEPAM (ATIVAN ORAL) Take by 0 mouth. Active cyproheptadine Take 4 mg by 0 (PERIACTIN) 4 mg tablet mouth 3 (three) times a day as needed. Active DIAZEPAM ORAL Take by 0 mouth. Active CLONAZEPAM (KLONOPIN Take by 0 ORAL) mouth. Active MIRTAZAPINE (REMERON Take by 0 ORAL) mouth. Active FUROSEMIDE (LASIX ORAL) Take by 0 mouth. Active nitrofurantoin, Take 100 mg 0 macrocrystal-monohydrate, by mouth 2 (MACROBID) 100 MG capsule (two) times a day. Active LISINOPRIL ORAL Take by 0 mouth. Active oxyCODONE (OXYCONTIN) 20 Take 20 mg by 0 mg 12 hr crush-resistant mouth every tablet 12 (twelve) hours. Active oxyCODONE (ROXICODONE) 10 Take 10 mg by 0 mg immediate release mouth every 6 tablet (six) hours as needed for pain. Active HYDROmorphone (DILAUDID) Take 4 mg by 0 4 MG tablet mouth every 4 (four) hours as needed for pain. Active promethazine (PHENERGAN) Take 25 mg by 0 25 MG tablet mouth every 6 (six) hours as needed for nausea. Active sulfamethoxazole-trimetho Take 1 tablet 0 prim (BACTRIM DS) 800-160 by mouth 2 mg per tablet (two) times a day. Active omeprazole (PRILOSEC) 20 Take 20 mg by 0 MG capsule mouth daily. Active enoxaparin (LOVENOX) 60 Inject 60 mg 0 mg/0.6 mL Syrg under the skin every 12 (twelve) hours. Active Problems Not on file Encounters Care Team Description Date Type Specialty Yamil Garcia MD 12/09/2020 Telephone Medical Oncology Yamil Garcia MD 11/04/2020 Documentation Medical Oncology Yamil Garcia MD 11/04/2020 Documentation Medical Oncology Yamil Garcia MD 10/31/2020 Documentation Medical Oncology Yamil Garcia MD 10/31/2020 Documentation Medical Oncology Yamil Garcia MD 10/31/2020 Documentation Medical Oncology Yamil Garcia MD 10/31/2020 Documentation Medical Oncology Yamil Garcia MD 10/31/2020 Documentation Medical Oncology Yamil Garcia MD 10/31/2020 Documentation Medical Oncology Yamil Garcia MD 10/31/2020 Documentation Medical Oncology from Last 3 Months Social History Date Tobacco Use Types Packs/Day Years Used Never Smoker Comments Alcohol Use Standard Drinks/Week rare Yes 0 (1 standard drink = 0.6 o z pure alcohol) Sex Assigned at Date Recorded Not on file Last Filed Vital Signs Reading Time Taken Comments Vital Sign 131/80 07/16/2015 7:07 PM NAIL GALVANIZER Blood Pressure 84 07/16/2015 7:07 PM NAIL GALVANIZER Pulse 36.6 C (97.9 F) 07/16/2015 7:07 PM NAIL GALVANIZER Temperature 16 07/16/2015 7:07 PM NAIL GALVANIZER Respiratory Rate 99% 07/16/2015 7:07 PM NAIL GALVANIZER Oxygen Saturation - - Inhaled Oxygen Concentration 54.4 kg (120 lb) 07/16/2015 4:26 PM NAIL GALVANIZER Weight 147.3 cm (4' 10") 07/16/2015 4:26 PM NAIL GALVANIZER Height 25.08 07/16/2015 4:26 PM NAIL GALVANIZER Body Mass Index Plan of Treatment Health Maintenance Due Date Last Done Comments Td/Tdap# 1975 COVID-19 Vaccine (1) 1988 Cervical Cancer Screening 1997 via Pap Smear Influenza Vaccine (Season 03/14/2021 Ended) Pneumococcal Vaccine: At Aged Out No longer niurka gible based on patient's age to Risk Patients (Adults and complete this topic Pediatrics Ages 0-5) Results Not on filefrom Last 3 Months Insurance Type Payer Benefit Subscriber ID Effective Phone Address Plan / Dates Group [place] [id number] 2015[facility] [place] [id number] 2020-P MEDICAID resent Cheyenne Chávez Personal/F Self [address] [place] (Home) [place] [id number] Advance Directives For more information, please contact: [phone] Patient Database Specialist Explanation Type Date Recorded Advance Directives and Living Will Power of Data Warehousing Architect
--- NOTE | 2021-06-17 18:27 | ED General ---
General Stated Complaint: COUGH/SORE THROAT/BODYACHES/HEADACHE Source of Information: Patient Exam Limitations: No Limitations History of Present Illness Date Seen by Provider: Jun 17, 2021 Time Seen by Provider: 18:25 Initial Comments to ER with cough sore throat body aches headache fever up to 100 degrees. Symptoms present for 2 to 3 days. Not vaccinated against Covid. History of "a blood disorder". History of Davis's disease and chronic kidney disease. Timing/Duration: 1-2 Days Severity: Moderate Associated Systoms: Denies Symptoms Allergies and Home Medications Allergies Coded Allergies: fentanyl (Verified Allergy, Unknown, 12/04/18) States asphyxia ketorolac (Verified Allergy, Unknown, 12/04/18) ondansetron (Verified Allergy, Unknown, 12/04/18) hydromorphone (Verified Adverse Reaction, Unknown, rash, 12/04/18) morphine (Verified Adverse Reaction, Unknown, itching, 12/04/18) Patient Home Medication List Home Medication List Reviewed: Yes Ciprofloxacin HCl (Cipro) 500 Mg Tablet, 500 MG PO BID, (Reported) Entered as Reported by: NEELIMA JOSE on 09/16/20 112 Ciprofloxacin HCl (Ciprofloxacin HCl) 500 Mg Tablet, 500 MG PO BID Prescribed by: COLT BENTLEY on 11/29/20 1302 Clonidine HCl (Clonidine HCl) 0.1 Mg Tablet, 0.1 MG PO BID, (Reported) Entered as Reported by: NEELIMA JOSE on 09/16/20 112 Divalproex Sodium (Depakote) 125 Mg Tablet.dr, 125 MG PO DAILY, (Reported) Entered as Reported by: NEELIMA JOSE on 09/16/20 112 Furosemide (Lasix) 20 Mg Tablet, 20 MG PO HS, (Reported) Entered as Reported by: NEELIMA JOSE on 09/16/20 112 Gabapentin (Gabapentin) 400 Mg Capsule, 400 MG PO TID, (Reported) Entered as Reported by: NEELIMA JOSE on 09/16/20 112 Gabapentin (Gabapentin) 100 Mg Capsule, 100 MG PO HS, (Reported) Entered as Reported by: NEELIMA JOSE on 09/16/20 112 Hydrocodone Bit/Acetaminophen (HYDROcodone/APAP 5 MG/325 MG TAB) 1 Tab Tab, 1 TAB PO Q8H PRN for PAIN-MODERATE (5-7) Prescribed by: OLEGARIO B DELMAN on 09/25/20 1239 Hydrocodone/Acetaminophen (Hydrocodone-Acetamin 5-325 mg) 1 Each Tablet, 1 TAB PO Q4H PRN for PAIN-MODERATE (5-7) Prescribed by: COLT BENTLEY on 11/29/20 1303 Lisinopril (Lisinopril) 20 Mg Tablet, 20 MG PO DAILY, (Reported) Entered as Reported by: NEELIMA JOSE on 09/16/20 1121 Nitrofurantoin Monohyd/M-Cryst (Macrobid 100 mg Capsule) 100 Mg Capsule, 1 TAB PO BID, (Reported) Entered as Reported by: NEELIMA JOSE on 09/16/20 1121 Phenazopyridine HCl (Pyridium) 100 Mg Tablet, 100 MG PO BID PRN for PAIN- MODERATE (5-7) Prescribed by: COLT BENTLEY on 11/29/20 1302 Phenytoin Sodium Extended (Dilantin) 100 Mg Capsule, 100 MG PO TID, (Reported) Entered as Reported by: NEELIMA JOSE on 09/16/20 1121 Trazodone HCl (Trazodone HCl) 50 Mg Tablet, 50 MG PO HS, (Reported) Entered as Reported by: NEELIMA JOSE on 09/16/20 1121 Review of Systems Review of Systems Constitutional: see HPI, chills, fever EENTM: see HPI, nose congestion Respiratory: see HPI, cough Cardiovascular: no symptoms reported Genitourinary: no symptoms reported Musculoskeletal: no symptoms reported Skin: no symptoms reported Psychiatric/Neurological: No Symptoms Reported Hematologic/Lymphatic: No Symptoms Reported Immunological/Allergic: no symptoms reported Past Mzuueiy-Qumcjs-Rghefd Hx Immunizations Up To Date Tetanus Booster (TDap): Less than 5yrs PED Vaccines UTD: Yes Seasonal Allergies Seasonal Allergies: No Past Medical History Surgeries: Yes (8 surgeries for bowel, port placement, C/S x3, D&C, Jose IVC filter) Appendectomy, Bowel Surgery, Section, Gallbladder Respiratory: No Cardiac: Yes (On Lisinopril (Provided a disc PMH/PSH hundreds of pages)) Hypertension Neurological: Yes ((Provided detailed disc PMH/PSH and long med list unable to review)) Genitourinary: Yes ( Reports detailed hx (with CKD Stage 3), ureteral reflux) Bladder Infection, Kidney Stones Gastrointestinal: Yes (Bowel resection (Extensive records on a disc unable to review)) Obstructive Bowel, Diverticulosis Musculoskeletal: Yes (Numerous pain meds on old med list) Chronic Back Pain Endocrine: No HEENT: No Cancer: Yes (CLL (STAGE 2) IN 2015) Leukemia Psychosocial: Yes (Hx of Seroquel, Remeron, Clonzepam, Ativan on an old list) Integumentary: Yes (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 oz. 57.689128lj; 24.00 BMI Method:Stated General Appearance: No Apparent Distress, WD/WN Eyes: Bilateral Eye Normal Inspection, Bilateral Eye PERRL, Bilateral Eye EOMI HEENT: PERRL/EOMI, TMs Normal Neck: Full Range of Motion, Normal Inspection Respiratory: Normal Breath Sounds, No Accessory Muscle Use, No Respiratory Distress Cardiovascular: Regular Rate, Rhythm, Normal Peripheral Pulses Gastrointestinal: Normal Bowel Sounds, Non Tender, Soft Extremity: Normal Capillary Refill, Normal Inspection Neurologic/Psychiatric: Alert, Oriented x3 Skin: Normal Color, Warm/Dry Progress/Results/Core Measures Suspected Sepsis SIRS Temperature: Pulse: Respiratory Rate: Blood Pressure / Mean: Results/Orders Lab Results Laboratory Tests Test 06/17/21 18:25 Range/Units Influenza Type A Antigen NEGATIVE NEGATIVE Influenza Type B Antigen NEGATIVE NEGATIVE SARS-CoV-2 RNA (RT-PCR) Positive H Negative My Orders Orders - COLT BENTLEY APRN Covid 19 Inhouse Test (06/17/21 18:19) Chest 1 View, Ap/Pa Only (06/17/21 18:22) Influenza A & B Antigens (06/17/21 18:25) Vital Signs/I&O 06/17/21 06/17/21 18:20 18:58 Pulse 87 Resp 18 B/P (MAP) 138/96 (110) Pulse Ox 100 O2 Delivery Room Air Room Air Capillary Refill : Departure Communication (Admissions) Family Conversation NAME: KASSANDRA KENDRICK MED REC#: [id number] PT STATUS: REG ER : 1975 PHYSICIAN: COLT BENTLEY APRN ADMIT DATE: 06/17/21/ER Signed Date of Exam:06/17/21 CHEST 1 VIEW, AP/PA ONLY CHEST 1 VIEW, AP/PA ONLY Indication: Cough Comparison: 12/05/2020 Findings: No focal airspace disease in the visualized lungs. Please note that the posterior lower lobes are poorly evaluated by portable radiography. No pleural effusion or pneumothorax. Stable enlargement cardiac silhouette. Stable position of left IJ Port-A-Cath. Impression: 1. No acute cardiopulmonary process by portable radiography. Dictated by: Dictated on workstation # [id number] Dict: 06/17/211906 Trans: 06/17/211907 [facility] [id number] Interpreted by: HARINDER JONES MD Electronically signed by: HARINDER JONES MD 06/17/211907 185-she would qualify based on comorbidities for Sotrovimab but there are very few doses in the community and no available infusion dates until next week. Monoclonal antibody her renal function and hepatic function on outpatient labs earlier today are normal and she would qualify for oral paxlovid twice daily x5 days. However, she declines paxlovid stating that she have to "look it up". She would like to get monoclonal antibody infusion. 1924-she would like a prescription for Decadron and azithromycin she states. She would like this because her sputum is green. I informed her that the color of sputum does not determine bacterial versus viral to which she replies "well thats weird" in disbelief. She states that she is already on clindamycin for a wound on her left cheek (which is without erythema or drainage). [facility] but would like a note to excuse her from court in 2 days. She states that she is Evangelical and her rabbi is going to make her some colloidal silver to treat this Covid infection and she has been aer osolizing colloidal silver with her nebulizer once a week with peroxide and informs me that this is the first time that she has gotten sick since Covid started despite not wearing a mask or being unvaccinated. I discussed with her that I have no knowledge of colloidal silver usage in Covid and cannot give her any advice on that. Impression Primary Impression: COVID-19 Disposition: 01 HOME, SELF-CARE Condition: Stable Departure-Patient Inst. Decision time for Depature: 18:33 Referrals: EDIL NGUYEN APRN (PCP/Family) Primary Care Physician Patient Instructions: COVID-19 Vaccines Add. Discharge Instructions: 1. Return to Er for any concerns. 2. Tylenol and ibuprofen for any fevers, just use them sparingly. (Your liver enzymes and kidney function on todays labs were normal.) 3. Hospital pharmacy department will call you within the next few days to schedule your infusion. COLT BENTLEY APRN Jun 17, 2021 18:27
--- NOTE | 2021-06-17 19:09 | Diagnostic Imaging Report ---
CHEST 1 VIEW, AP/PA ONLY Indication: Cough Comparison: 12/05/2020 Findings: No focal airspace disease in the visualized lungs. Please note that the posterior lower lobes are poorly evaluated by portable radiography. No pleural effusion or pneumothorax. Stable enlargement cardiac silhouette. Stable position of left IJ Port-A-Cath. Impression: 1. No acute cardiopulmonary process by portable radiography. Dictated by: Dictated on workstation # [id number]
[2021-06-17 19:15] VITALS: BP 130/98
[2021-06-21] MEDS ORDERED: LACTATED RINGERS 1,000 ML IV SCH (13:15)
[2021-06-21] MEDS ORDERED: IBUPROFEN 800 MG (MOTRIN) TAB PO ONE (13:15)
[2021-06-21] MEDS ORDERED: PROMETHAZINE INJ 25 MG/ML (PHENERGAN) AMP IVP ONE (13:15)
[2021-06-21] MEDS ORDERED: ACETAMINOPHEN 500 MG TAB (TYLENOL) PO ONE (13:15)
== END 2021-06-17 19:20 | disposition home or self-care (01) ==
LOC: EDUNIT# 18:07 → EEVIPCON 18:09 → ER 18:09
DX: U07.1 COVID-19 (principal); I10 Essential (primary) hypertension; G89.29 Other chronic pain; M54.9 Dorsalgia, unspecified; Z79.891 Long term (current) use of opiate analgesic
CPT/HCPCS: 71045; 87636; 87804

== ENCOUNTER 2021-07-10 13:05 | Outpatient (RCR) | payer MEDICAID ==
[2021-06-17 13:12] LABS: BASOPHILS % (AUTO) 0 % (0-10); EOSINOPHILS # (AUTO) 0.1 10^3/uL (0.0-0.3); EOSINOPHILS % (AUTO) 1 % (0-10); HEMATOCRIT 39 % (35-52); HEMOGLOBIN 12.4 g/dL (11.5-16.0); LYMPHOCYTES % (AUTO) 24 % (12-44); MEAN CORPUSCULAR HEMOGLOBIN 28 pg (25-34); MEAN CORPUSCULAR HGB CONC 32 g/dL (32-36); MEAN CORPUSCULAR VOLUME 89 fL (80-99); MEAN PLATELET VOLUME 10.1 fL (9.0-12.2); MONOCYTES # (AUTO) 0.5 10^3/uL (0.0-1.0); MONOCYTES % (AUTO) 12 % (0-12); NEUTROPHILS # (AUTO) 2.5 10^3/uL (1.8-7.8); NEUTROPHILS % (AUTO) 63 % (42-75); PLATELET COUNT 203 10^3/uL (130-400)
[2021-06-17 13:38] LABS: ALBUMIN 3.9 GM/DL (3.2-4.5); BILIRUBIN,TOTAL 0.2 MG/DL (0.1-1.0); CALCIUM 8.8 MG/DL (8.5-10.1); CREATININE SERUM 0.77 MG/DL (0.60-1.30); TOTAL PROTEIN 7.1 GM/DL (6.4-8.2)
== END 2021-07-14 | disposition home or self-care (01) ==
LOC: ONC 13:05
PROVIDERS: ATTEND Internal Medicine Hematology & Oncology
DX: Z45.2 Encounter for adjustment and management of vascular access device (principal); D50.9 Iron deficiency anemia, unspecified
CPT/HCPCS: 36591; 80053; 82728; 83540; 83550; 85025; 99213

== ENCOUNTER 2021-09-05 09:51 | Outpatient (RCR) | payer MEDICAID | END 2021-09-11 | LOC: ONC 09:51 | PROVIDERS: ATTEND Internal Medicine Hematology & Oncology | DX: D50.9 Iron deficiency anemia, unspecified (principal); D68.59 Other primary thrombophilia; L81.4 Other melanin hyperpigmentation; K31.84 Gastroparesis; Z86.16 Personal history of COVID-19; Z86.718 Personal history of other venous thrombosis and embolism; Z84.89 Family history of other specified conditions ==

== ENCOUNTER 2022-04-09 11:23 | Outpatient (RCR) | payer MEDICAID ==
[2022-04-09 12:11] LABS: BASOPHILS % (AUTO) 0 % (0-10); EOSINOPHILS # (AUTO) 0.2 10^3/uL (0.0-0.3); EOSINOPHILS % (AUTO) 2 % (0-10); HEMATOCRIT 39 % (35-52); HEMOGLOBIN 12.5 g/dL (11.5-16.0); LYMPHOCYTES # (AUTO) 1.7 10^3/uL (1.0-4.0); LYMPHOCYTES % (AUTO) 21 % (12-44); MEAN CORPUSCULAR HEMOGLOBIN 28 pg (25-34); MEAN CORPUSCULAR HGB CONC 32 g/dL (32-36); MEAN CORPUSCULAR VOLUME 87 fL (80-99); MEAN PLATELET VOLUME 10.4 fL (9.0-12.2); MONOCYTES # (AUTO) 0.7 10^3/uL (0.0-1.0); MONOCYTES % (AUTO) 8 % (0-12); NEUTROPHILS # (AUTO) 5.5 10^3/uL (1.8-7.8); NEUTROPHILS % (AUTO) 68 % (42-75); PLATELET COUNT 287 10^3/uL (130-400)
[2022-04-09 12:32] LABS: BILIRUBIN,TOTAL 0.2 MG/DL (0.1-1.0); CALCIUM 9.6 MG/DL (8.5-10.1); CREATININE SERUM 0.76 MG/DL (0.60-1.30)
== END 2022-04-13 | disposition home or self-care (01) ==
LOC: ONC 11:23
PROVIDERS: ATTEND Internal Medicine Hematology & Oncology
DX: Z45.2 Encounter for adjustment and management of vascular access device (principal); D50.9 Iron deficiency anemia, unspecified; D68.59 Other primary thrombophilia
CPT/HCPCS: 36591; 80053; 82728; 83540; 83550; 85025

== ENCOUNTER 2023-02-17 12:44 | Emergency (ER) | payer MEDICAID, OTHER ==
[~2023-02-17] VITALS: Ht 158 cm; Wt 53.2 kg
[2023-02-17 12:58] VITALS: BP 133/84
--- NOTE | 2023-02-17 13:09 | ED GI ---
General Chief Complaint: Back Problems Stated Complaint: RT FLANK PAIN Nursing Triage Note: Patient has presented to ER with cc of right flank pain. She reports flank pain and blood in the urine for the last 2 days. She was seen by Dr. Campa - she had a UA at the clinic and was sent with cipro and flomax. Patient states that Dr. Campa believes that she has a kidney stone and she was sent to ER for further work up. Source of Information: Patient Exam Limitations: No Limitations History of Present Illness Date Seen by Provider: Feb 17, 2023 Time Seen by Provider: 12:53 Initial Comments 47-year-old female presents for right flank pain. She has a longstanding history of calcium oxalate as well as uric acid stones. She sees Dr. Ghosh, urology out of [place]. She was seen in the walk-in clinic today and started on Flomax and Cipro. She reportedly had urine that was positive for blood and possibly nitrite but negative for bacteria. She denies any fevers or chills. She tells me she has been having a kidney stone every month for the last 6 or 7 months. She has had multiple CT scans and work-ups during that time. She has had to have lithotripsy, most recently about 3 months ago, for similar symptoms. She has not yet called her urologist. Current symptoms are exactly the same as her previous kidney stones. She states that in important Mu-[employer] holiday is coming up and she needs to be better by then. All other systems reviewed and negative except documented per HPI. Voice recognition software was used to help create this chart Allergies and Home Medications Allergies Coded Allergies: fentanyl (Verified Allergy, Unknown, 12/04/18) States asphyxia ketorolac (Verified Allergy, Unknown, 12/04/18) ondansetron (Verified Allergy, Unknown, 12/04/18) hydromorphone (Verified Adverse Reaction, Unknown, rash, 12/04/18) morphine (Verified Adverse Reaction, Unknown, itching, 12/04/18) Patient Home Medication List Home Medication List Reviewed: Yes Ciprofloxacin HCl (Cipro) 500 Mg Tablet, 500 MG PO BID, (Reported) Entered as Reported by: NEELIMA JOSE on 09/16/20 1121 Ciprofloxacin HCl (Ciprofloxacin HCl) 500 Mg Tablet, 500 MG PO BID Prescribed by: COLT BENTLEY on 11/29/20 1302 Clonidine HCl (Clonidine HCl) 0.1 Mg Tablet, 0.1 MG PO BID, (Reported) Entered as Reported by: NEELIMA JOSE on 09/16/20 112 Divalproex Sodium (Depakote) 125 Mg Tablet.dr, 125 MG PO DAILY, (Reported) Entered as Reported by: NEELIMA JOSE on 09/16/20 112 Furosemide (Lasix) 20 Mg Tablet, 20 MG PO HS, (Reported) Entered as Reported by: NEELIMA JOSE on 09/16/20 112 Gabapentin (Gabapentin) 400 Mg Capsule, 400 MG PO TID, (Reported) Entered as Reported by: NEELIMA JOSE on 09/16/20 112 Gabapentin (Gabapentin) 100 Mg Capsule, 100 MG PO HS, (Reported) Entered as Reported by: NEELIMA JOSE on 09/16/20 112 Hydrocodone Bit/Acetaminophen (HYDROcodone/APAP 5 MG/325 MG TAB) 1 Tab Tab, 1 TAB PO Q8H PRN for PAIN-MODERATE (5-7) Prescribed by: OLEGARIO ELIZALDE on 09/25/20 1239 Hydrocodone/Acetaminophen (Hydrocodone-Acetamin 5-325 mg) 1 Each Tablet, 1 TAB PO Q4H PRN for PAIN-MODERATE (5-7) Prescribed by: COLT BENTLEY on 11/29/20 1303 Lisinopril (Lisinopril) 20 Mg Tablet, 20 MG PO DAILY, (Reported) Entered as Reported by: NEELIMA JOSE on 09/16/20 112 Nitrofurantoin Monohyd/M-Cryst (Macrobid 100 mg Capsule) 100 Mg Capsule, 1 TAB PO BID, (Reported) Entered as Reported by: NEELIMA JOSE on 09/16/20 112 Phenazopyridine HCl (Pyridium) 100 Mg Tablet, 100 MG PO BID PRN for PAIN- MODERATE (5-7) Prescribed by: COLT BENTLEY on 11/29/20 1302 Phenytoin Sodium Extended (Dilantin) 100 Mg Capsule, 100 MG PO TID, (Reported) Entered as Reported by: NEELIMA JOSE on 09/16/20 112 Trazodone HCl (Trazodone HCl) 50 Mg Tablet, 50 MG PO HS, (Reported) Entered as Reported by: NEELIMA JOSE on 09/16/20 1121 Review of Systems Review of Systems Constitutional: see HPI Past Dhdaprb-Ubskdq-Egobce Hx Patient Social History Tobacco Use?: No Use of E-Cig and/or Vaping dev: No Substance use?: No Alcohol Use?: No Immunizations Up To Date Tetanus Booster (TDap): Less than 5yrs PED Vaccines UTD: Yes Seasonal Allergies Seasonal Allergies: No Past Medical History Surgeries: Yes (8 surgeries for bowel, port placement, C/S x3, D&C, [place] IVC filter) Appendectomy, Bowel Surgery, Section, Gallbladder Respiratory: No Cardiac: Yes (On Lisinopril (Provided a disc PMH/PSH hundreds of pages)) Hypertension Neurological: Yes ((Provided detailed disc PMH/PSH and long med list unable to review)) Genitourinary: Yes ( Reports detailed hx (with CKD Stage 3), ureteral reflux) Bladder Infection, Kidney Stones Gastrointestinal: Yes (Bowel resection (Extensive records on a disc unable to review)) Obstructive Bowel, Diverticulosis Musculoskeletal: Yes (Numerous pain meds on old med list) Chronic Back Pain Endocrine: No HEENT: No Cancer: Yes (CLL (STAGE 2) IN 2015) Leukemia Psychosocial: Yes (Hx of Seroquel, Remeron, Clonzepam, Ativan on an old list) Integumentary: Yes (Reports Hx of VRE blood and urine) Blood Disorders: Yes (Has IVC ([place] filter)) Physical Exam Vital Signs Vital Signs - First Documented 02/17/23 12:58 Temp 36.6 Pulse 86 Resp 16 B/P (MAP) 133/84 (100) Pulse Ox 98 O2 Delivery Room Air Capillary Refill : Height/Weight/BMI Height: 4'11.00" Weight: 126lbs. oz. [id number]; 21.00 BMI Method:Stated General Appearance: WD/WN, no apparent distress HEENT: normal ENT inspection, pharynx normal Neck: non-tender, supple Respiratory: chest non-tender, lungs clear, normal breath sounds Cardiovascular: regular rate, rhythm, no murmur Gastrointestinal: normal bowel sounds, non tender, soft, no organomegaly Back: normal inspection, CVA tenderness (R) Neurologic/Psychiatric: alert, oriented x 3 Skin: normal color, warm/dry Progress/Results/Core Measures Results/Orders Vital Signs/I&O 02/17/23 12:58 Temp 36.6 Pulse 86 Resp 16 B/P (MAP) 133/84 (100) Pulse Ox 98 O2 Delivery Room Air Blood Pressure Mean: 100 Departure Communication (Admissions) Patient is hemodynamically stable and in no acute distress. Unfortunately he will have ultrasound here. I discussed CT versus just following up with her ur ologist. She has had multiple CTs over the last 6 to 7 months and is concerned about the radiation provided. I did advise that overall this is a fairly low dose of radiation however it is without risks. She options to call her urologist to schedule follow-up. I advised that this was likely the quickest way to get feeling better before her Mu-[employer] holiday coming up. She states u nderstanding. She is discharged home in stable condition with supportive care. Impression Primary Impression: Ureterolithiasis Disposition: HOME, SELF-CARE Condition: Stable Departure-Patient Inst. Referrals: QAMAR CAMPA MD (PCP) Primary Care Physician Patient Instructions: Kidney Stone, Adult ED Add. Discharge Instructions: Call your urologist to see if you can get into schedule an appointment. I have given you the name of a urologist in [place] with whom you may try to get in sooner. Increase your fluids. Continue Flomax and Cipro as previously prescribed. Return to the emergency department for any severe concerns. [facility] [address] [place], [place] [address] All discharge instructions reviewed with patient and/or family. Voiced understanding. CLIFF WOLF DO Feb 17, 2023 13:09
== END 2023-02-17 13:11 | disposition home or self-care (01) ==
LOC: EDUNIT# 12:44 → ER FS 12:48
DX: N20.1 Calculus of ureter (principal); Z87.442 Personal history of urinary calculi
CPT/HCPCS: 99281